=== PATIENT | female | born 1930 | race Caucasian/White ===

== ENCOUNTER → 2016-09-09 | Outpatient (CLI) | payer MEDICARE, OTHER ==
--- NOTE | 2016-09-09 17:08 | WOMENS IMAGING REPORT ---
EXAM DESCRIPTION: 3D SCREENING MAMMO BILAT COMPLETED DATE/TIME: 09/09/2016 9:10 am REASON FOR STUDY: BILAT SCREENING MAMMO (Z12.31) COMPARISON: 08/20/2015 TECHNIQUE: Standard craniocaudal and mediolateral oblique views of each breast recorded using digita l acquisition and breast tomosynthesis. LIMITATIONS: None. FINDINGS: Findings present which are benign by mammographic criteria. No suspicious masses, calcifi cations or architectural distortion. Read with the assistance of CAD. .[facility] - R2 Cenova Version 1.3 .[facility] - R2 Cenova Version 1.3 .[facility] - R2 Cenova Version 2.4 .[facility] [place]2 Cenova Version 2.4 .[facility] - R2 Network Technology Instructor Version 9.2 Benign mammographic findings may include one or more of the following: Smooth masses, popcorn/rim/co arse calcifications, asymmetries, post-procedure changes, and lesions with long-standing stability. BREAST DENSITY: b. There are scattered areas of fibroglandular density. BIRAD: 2 BENIGN FINDING(S) RECOMMENDATION: RECOMMENDATION: ROUTINE SCREENING COMMENT: PATIENT NOTIFIED BY LETTER The [employer] recommends an annual screening mammogram for women aged 40 years or over. Each patient will receive a reminder prior to the anniversary date of her mammogram. The [employer] (ACR) has developed recommendations for screening MRI of the breast s in certain patient populations, to be used in conjunction with mammography. Breast MRI surveillanc e may be appropriate for women with more than 20% lifetime risk of developing breast cancer as deter mined by genetic testing, significant family history of the disease, or history of mantle radiation f or Hodgkins Disease. ACR Practice Guidelines 2008. DBT Technology DBT is a type of tomographic mammography. With conventional mammography, overlapping breast tissue ma y make lesions difficult to detect, even with good compression. DBT uses an x-ray tube that rotates a round the breast, taking images at different angles. These images are then combined to create thin sl ices of the breast that the radiologist can view as a 3D reconstruction. [facility] unit can perform full-field digital mammograms (2D imaging); or DBT (3D imaging); or both, in a combination mode that quickly performs both the mammogram and the tomosynthesis scan while the breast is still compressed. PQRS 6045F: Fluoroscopic imaging is not utilized for breast tomosynthesis. TECHNICAL DOCUMENTATION: FINDING NUMBER: (1) ASSESSMENT: (1) JOB ID: [id number] [employer]- All Rights Reserved
== END ==
LOC: WI 08:56
PROVIDERS: ATTEND Family Medicine
DX: Z12.31 Encounter for screening mammogram for malignant neoplasm of breast (principal)
CPT/HCPCS: 77063; G0202; 77067

== ENCOUNTER → 2016-09-17 | Outpatient (CLI) | payer MEDICARE, OTHER ==
[2016-09-17 16:58] LABS: ANION GAP 9 (5-19); BLOOD UREA NITROGEN 16 mg/dL (7-20); CALCIUM 10.4 mg/dL (8.4-10.2); CARBON DIOXIDE 29 mmol/L (22-30); CHLORIDE 105 mmol/L (98-107); CREATININE RESULT 1.27 mg/dL (0.52-1.25); GLUCOSE 94 mg/dL (75-110); POTASSIUM 4.2 mmol/L (3.6-5.0); SODIUM 143.3 mmol/L (137-145)
[2016-09-20 16:38] LABS: ALBUMIN 3 3.2 g/dL (2.9-4.4); ALPHA-1-GLOBULIN 0.2 g/dL (0.0-0.4); ALPHA-2-GLOBULIN 3 0.9 g/dL (0.4-1.0); BETA GLOBULIN 0.9 g/dL (0.7-1.3); GLOBULIN TTL 2.9 g/dL (2.2-3.9); IMMUNOGLOBULIN A 159 mg/dL (64-422); IMMUNOGLOBULIN G 940 mg/dL (700-1600); IMMUNOGLOBULIN M 102 mg/dL (26-217); MONOCLONAL-SPIKE Not Observed g/dL (Not Observed); PROTEIN TOTAL SERUM 6.1 g/dL (6.0-8.5)
== END ==
LOC: OD 15:00
PROVIDERS: ATTEND Internal Medicine Nephrology
DX: N17.9 Acute kidney failure, unspecified (principal); E83.52 Hypercalcemia
CPT/HCPCS: 36415; 80048; 86320

== ENCOUNTER → 2016-09-23 | Outpatient (CLI) | payer MEDICARE, OTHER ==
--- NOTE | 2016-09-23 09:17 | ST Modified Barium Swallow ---
Recommendation - Recommendations Recommendations: 1) Continue current diet. 2) Alternate bites and sips to aid in clearing trace residuals. 3) Small bites and sips to aid in reducing flash penetration and residuals. SUMMARY: Pt presents with a mild pharyngeal dysphagia characterized by flash penetration on large swallows of thin by cup and straw. Trace to mild residuals of solids observed at level of the valleculae which were observed to clear with independent initiation of second swallow. Medical Diagnoses - Medical Diagnoses Medical Diagnosis Description & ICD-10 Code(s): gastroesophageal reflux disease Other Medical Diagnoses/Co-Morbidities: reflux, CHF, diverticulosis, depression , hiatal hernia, "hypothyroid- nodules non-toxic" - ICD-10 Tx Diagnosis Coding (1) Dysphagia, pharyngeal phase ICD-10 Code(s): R13.13 - DYSPHAGIA, PHARYNGEAL PHASE ST Modified Barium Swallow - General Date: 09/23/16 Referring Physician: Taylor Pierce MD Risks/Precautions: Falls - uses walker Date of Onset: 06/23/16 Reason for Referral: gastroesophageal reflux disease - History History obtained from: Patient, Parent/Caregiver - daugther -: Medical - Pt reports onset of symptoms approximately 7-10 years ago, however after "aspiration event" 3 months ago, daughter reports symptoms have become worse and cough has increased. Pt's daughter reports pt coughs on liquids mostly , however at times will cough on solids "when she does not chew well." PMHx: reflux, CHF, diverticulosis, depression, hiatal hernia, "hypothyroid- nodules non-toxic" Medications: nebulizer, tylenol, prevacid, aspirin, melatonin, ipratropium, ketoconazole, align, zemplar, citalopram, nadolol, nasonex, oxybutynin chloride , potassium chloride, zetia, atorvastatin, ibuprofen, furosemide, synthroid, urecholine, aricept, klonopin, linzess. Allergies: lyrica, dairy - Functional Status Prior Functional Status: INDEPENDENT: feeding Current Functional Limitations: feeding - Subjective Patient/caregiver goal(s): safe swallow, r/o aspiration Cognitive-Linguistic Function: Functional Speech Intelligibility: WNL Current Nutritional Means: PO Current PO diet: Regular Current symptoms: Coughing, c/o Globus sensation Pain: 0/5 - Objective Assessment: Upright, Left Lateral - Food Trials Used Food trials used: Thin liquids, Pureed, Regular The patient: Was Able to Self Feed - Oral-Motor Skills Dentition: Partial - lower teeth only Velo-pharyngeal function: Unremarkable Laryngeal Function: Volitional Cough, Volitional Swallow - Assessment Oral prep: Adeq, for consist. tested Labial closure: Adequate Leakage: None Mastication: Adequate Lingual Movement: Normal Oral stage: Normal for this Procedure - Pharyngeal Stage Initiation of Pharyngeal Stage Reflex: Normal Decreased laryngeal elevation: No Reduced Velopharyngeal Closure: no Reduced pressure generation: Yes - mild reduced tongue-based retraction: No Pre-swallow pooling in valleculae: None Pre-Swallow pooling in pyriforms: None Reduced Thyro-Hyoid approximation: Yes - mild Reduced epiglottic excursion: No Reduced pharyngeal peristalsis/contraction: No Post-swallow residulas vallecular: Mild - trace-mild Post-Swallow residuals in pyriforms: Mild - trace-mild Reduced Cricopharyngeal opening: No - Fall Risk Assessment Medications/Conditions that increase fall risks include: Antidepressants, sedatives, anti-arrhythmic, diuretic, benzodiazipenes, neuroleptics. BP regulation problems, cardiac problems, balance or gait deficits, neurological problems. Is patient considered at risk for falls: yes Fall Risk Actions Taken: Pt physician notified - Behavioral Observations During evaluation process patient: was pleasant, was cooperative, able to answer questions, provided medical history - Treatment / Educational Needs: Treatment/Education Needs: Treatment consisted of patient education on the role of the Speech Pathologist. Patient's plan of care and golas were communicated as well as scheduling and attendance policies. Recommendations for initial home program were shared. Patient demonstrated understanding and verbalized agreement. - Impression/Summary Laryngeal Penetration: Yes, Flash, during swallow Consistency: Thin Tracheal Aspiration: no Patient presents with: Pharyngeal stage dysph. Risk of Aspiration: Mild - minimal-mild - Recommendations NPO: no Solid diet recommendations: Mechanical Soft Liquid Diet Modification: Thin Pt/Family education and followup with MD: Yes Dysphagia therapy with LUMBER INSPECTOR: no Recommended techniques: Fully Upright During Meal, Small Bites and Sips, Alternate Bites/Sips Supervision: Distant Information, Precautions and Recommendations: Patient (Verbal), Family Member ( Verbal) - Time Total Time: 25 - Plan of Care Strategies to optimize patient understanding include:: ongoing assessment of educational needs, implementation of educational strategies, and re-education. - - -: Thank you for the opportunity to work with this patient and his/her family. Should you have any questions about this patient's plan or progress, I can be reached at [phone]. Charge G Code? - - -: Yes ST White Impairment Category - Rationale Based On Rationale Based On: Clin Find., Obj Measures - Swallowing Current G8996: CI 1-19% Impaired Goal G8997: CI 1-19% Impaired Discharge G8998: CI 1-19% Impaired
== END ==
LOC: RAD 08:10
PROVIDERS: ATTEND Family Medicine
DX: R13.12 Dysphagia, oropharyngeal phase (principal)
CPT/HCPCS: 74220; 74230; 92611; G8996; G8997; G8998

== ENCOUNTER → 2016-10-26 | Outpatient (CLI) | payer MEDICARE, OTHER ==
--- NOTE | 2016-10-27 19:17 | XCELERA REPORT ---
[address] [address] Transthoracic Echocardiogram Report Name: DORY HER Age: 86 yrs Gender: Female : 1930 Patient Status: Outpatient Patient Location: Study Date: 10/26/2016 02:14 PM Height: 59 in Weight: 132 lb BSA: 1.5 m2 Procedure: A two-dimensional transthoracic echocardiogram with color flow and Doppler was performed. Study Quality: Poor. Reason For Study: MR CAD History: MR CAD. Ordering Physician: GRACIE SALDANA Performed By: Soraya Michael Interpretation Summary The left ventricle is normal in size. There is normal left ventricular wall thickness. LV EF is > than 60% Left ventricular systolic function is normal. Doppler measurements suggest impaired left ventricular relaxation, which is associated with grade I/IV or mild diastolic dysfunction The left ventricular wall motion is normal. No obvious thrrombus.No VSD The right ventricle is grossly normal size. The left atrial size is normal. The interatrial septum is intact with no evidence for an atrial septal defect. There is mild mitral leaflet calcification. There is no evidence of mitral valve prolapse. There is no vegetation seen on the mitral valve. There is no mitral valve stenosis. There is a mild amount of mitral regurgitation The aortic valve opens well. There is no aortic valvular vegetation. There is no aortic valve stenosis There is no LVOT obstruction. There is a trace amount of aortic regurgitation There is no tricuspid stenosis. There is a trace to mild amount of tricuspid regurgitation There is mild pulmonary hypertension by echo RVSP is 37 mm of Hg , with RA mean of 5. The aortic root is normal size. There is no pericardial effusion. MMode/2D Measurements \T\ Calculations RVDd: 2.2 cm LVIDd: 3.0 cm FS: 36.2 % Ao root diam: 2.7 cm IVSd: 1.1 cm LVIDs: 1.9 cm EDV(Teich): 36.1 ml LVPWd: 0.97 cm ESV(Teich): 11.8 ml Ao root area: 5.6 cm2 EF(Teich): 67.4 % LA dimension: 2.9 cm Doppler Measurements \T\ Calculations MV E max yaneli: MV P1/2t max yaneli: Ao V2 max: LV V1 max P.5 cm/sec 76.0 cm/sec 112.9 cm/sec 3.5 mmHg MV A max yaneli: MV P1/2t: 65.6 msec Ao max PG: LV V1 max: 80.0 cm/sec 5.1 mmHg 93.3 cm/sec MV E/A: 0.93 MVA(P1/2t): 3.4 cm2 MV dec slope: 339.1 cm/sec2 MV dec time: 0.22 sec PA V2 max: PI end-d yaneli: TR max yaneli: 76.0 cm/sec 118.4 cm/sec 283.7 cm/sec PA max PG: TR max P.3 mmHg 32.2 mmHg Left Ventricle The left ventricle is normal in size. There is normal left ventricular wall thickness. LV EF is > than 60%. Left ventricular systolic function is normal. Doppler measurements suggest impaired left ventricular relaxation, which is associated with grade I/IV or mild diastolic dysfunction. The left ventricular wall motion is normal. No obvious thrrombus.No VSD. Right Ventricle The right ventricle is grossly normal size. The right ventricle is not well visualized secondary to technical limitations. Atria The right atrium is normal. The left atrial size is normal. The interatrial septum is intact with no evidence for an atrial septal defect. Mitral Valve There is mild mitral leaflet calcification. There is no evidence of mitral valve prolapse. There is no vegetation seen on the mitral valve. There is no mitral valve stenosis. There is a mild amount of mitral regurgitation. Aortic Valve The aortic valve opens well. The aortic valve is trileaflet. There is no aortic valvular vegetation. There is no aortic valve stenosis. There is no LVOT obstruction. There is a trace amount of aortic regurgitation. Tricuspid Valve There is no tricuspid stenosis. There is a trace to mild amount of tricuspid regurgitation. There is mild pulmonary hypertension by echo. RVSP is 37 mm of Hg , with RA mean of 5. Pulmonic Valve There is no pulmonic valvular stenosis. There is a trace amount of pulmonic regurgitation. Great Vessels The aortic root is normal size. Effusions There is no pericardial effusion. : GRACIE SALDANA > Gracie Saldana
== END ==
LOC: SP 13:40
PROVIDERS: ATTEND Specialist
DX: Z01.810 Encounter for preprocedural cardiovascular examination (principal); I34.0 Nonrheumatic mitral (valve) insufficiency; I25.10 Atherosclerotic heart disease of native coronary artery without angina pectoris
CPT/HCPCS: 93306

== ENCOUNTER → 2016-10-27 | Outpatient (CLI) | payer MEDICARE, OTHER ==
[~2016-10-27] MED LIST: REGADENOSON INJ 0.4 MG/5 ML DISP.SYRIN IV ONE
--- NOTE | 2016-10-28 22:31 | DRAGON STRESS TEST REPORT ---
Intravenous Lexiscan Cardiolite stress test using single photon emmision computerized tomography. Date of procedure: 10/27/2016. Ordering Provider: Dr. Gracie Villa. Attending Physician: Dr. Oneyda Pierce. Indication: Congestive Heart Failure, and preoperative cardiac risk assessment.. Coronary risk factors: Age, hypertension, and dyslipidemia. Resting EKG: Sinus Rhythm Within Normal Limits. The patient no chest pain or discomfort, and there were no arrhythmias seen. Stress EKG: No changes of ischemia. Reason for termination: Protocol. Conclusions: Normal EKG and hemodynamic response to IV Lexiscan. Nuclear data: At rest the patient was given 10.65 millicuries of technetium 99m sestamibi injected intravenously. As per protocol rest non gated SPECT images were obtained. Subsequently the patient was given intravenous Lexiscan at a dose of 0.4 mg in 5 mL intravenously, followed by flush with normal saline. Subsequently the stress dose of 32.5 millicuries of technetium 99m sestamibi was injected intravenously. As per protocol stress gated images were obtained. Nuclear interpretation: Review of images showed that there was bowel contamination artifact and also motion artifact. In spite of this all segments of the myocardium had normal perfusion at rest, and normal perfusion post stress with IV Lexiscan. All segments of the myocardium had normal motion, contraction, and thickening by gated study. T. I D. ratio was normal at 0.98. Computer read rest, and stress left ventricular ejection fraction were 70 %, and 61 %, respectively. Conclusion: 1. There is no scintigraphic evidence of Lexiscan induced myocardial ischemia. 2. There is no scintigraphic evidence of myocardial infarction/scar. Recommendations: Aggressive risk factor modification, and treating the underlying co- morbidities. MTDD
== END ==
LOC: RAD 07:15
PROVIDERS: ATTEND Specialist
DX: Z01.810 Encounter for preprocedural cardiovascular examination (principal); I50.32 Chronic diastolic (congestive) heart failure; I25.118 Atherosclerotic heart disease of native coronary artery with other forms of angina pectoris; I10 Essential (primary) hypertension; E78.5 Hyperlipidemia, unspecified
CPT/HCPCS: 93017; 78452; A9500; J2785; Q9969

== ENCOUNTER 2016-11-18 13:51 | Inpatient (IN) | payer MEDICARE, OTHER ==
[2016-11-15 12:34] LABS: ANION GAP 12 (5-19); BLOOD UREA NITROGEN 24 mg/dL (7-20); CALCIUM 10.8 mg/dL (8.4-10.2); CARBON DIOXIDE 28 mmol/L (22-30); CHLORIDE 104 mmol/L (98-107); CREATININE RESULT 1.23 mg/dL (0.52-1.25); GLUCOSE 99 mg/dL (75-110); POTASSIUM 4.9 mmol/L (3.6-5.0); SODIUM 143.7 mmol/L (137-145)
[2016-11-15 12:57] LABS: HEMATOCRIT 41.9 % (36.0-47.0); HGB HCT DIFFERENCE 0.1; MEAN CORPUSCULAR HEMOGLOBIN 29.7 pg (27.0-33.4); MEAN CORPUSCULAR HGB CONC 33.3 g/dL (32.0-36.0); MEAN CORPUSCULAR VOLUME 89 fl (80-97); RED BLOOD COUNT 4.71 10^6/uL (3.72-5.28); RED CELL DISTRIBUTION WIDTH 14.3 % (11.5-14.0); WHITE BLOOD COUNT 7.1 10^3/uL (4.0-10.5)
--- NOTE | 2016-11-15 13:46 | EKG REPORT ---
SEVERITY:- NORMAL ECG - SINUS RHYTHM : Confirmed by: Kam Balderas MD 15-Nov-2016 13:45:35
[~2016-11-18 13:51] MED LIST changes: +GLYCOPYRROLATE INJ 0.4 MG/2 ML VIAL ONE; +LIDOCAINE 0.5% INJ-PF (5 MG/ML) 50 ML SDV SUBCUT PRN; +NEOSTIGMINE METHYLSULFATE 10 MG/10 ML VIAL ONE; -REGADENOSON INJ 0.4 MG/5 ML DISP.SYRIN IV ONE; +RINGERS SOLUTION,LACTATED 1,000 ML IV PRN; +ROCURONIUM BROMIDE INJ 50 MG/5 ML VIAL IV ONE; +SUCCINYLCHOLINE CHLORIDE INJ 200 MG/10 ML VIAL ONE
[2016-11-18] MEDS ORDERED: FENTANYL CITRATE INJ/PF 100 MCG/2 ML AMPUL ONE (14:52)
[2016-11-18] MEDS ORDERED: MIDAZOLAM 2 MG/2 ML INJ ONE (14:52)
[2016-11-18] MEDS ORDERED: PROPOFOL INJ 200 MG/20 ML VIAL IV ONE (14:53)
[2016-11-18] MEDS ORDERED: DEXAMETHASONE SOD PHOSPHATE INJ 4 MG/1 ML VIAL ONE (14:53)
[2016-11-18] MEDS ORDERED: MORPHINE SULFATE 10 MG/ML INJ ONE (14:53)
[2016-11-18] MEDS ORDERED: ONDANSETRON HCL INJ/PF 4 MG/2 ML SDV ONE (14:53)
[2016-11-18] MEDS ORDERED: CEFAZOLIN INJ 1 GM VIAL ONE (16:45)
[2016-11-18] MEDS ORDERED: DIPHENHYDRAMINE HCL 50 MG/ML VIAL IV PRN (18:22)
[2016-11-18] MEDS ORDERED: ONDANSETRON HCL INJ/PF 4 MG/2 ML SDV IV PRN ×2 (18:22→19:00)
[2016-11-18] MEDS ORDERED: MEPERIDINE HCL/PF INJ 25 MG/1 ML DISP.SYRIN IV PRN (18:22)
[2016-11-18] MEDS ORDERED: FENTANYL CITRATE INJ/PF 100 MCG/2 ML AMPUL IV PRN ×3 (18:22)
[2016-11-18] MEDS ORDERED: KETOROLAC TROMETHAMINE INJ/PF 30 MG/1 ML SDV ONE (18:59)
[2016-11-18] MEDS ORDERED: PHENAZOPYRIDINE HCL 100 MG TABLET PO PRN (19:00)
[2016-11-18] MEDS ORDERED: KETOROLAC TROMETHAMINE INJ/PF 30 MG/1 ML SDV IV PRN (19:00)
[2016-11-18] MEDS ORDERED: ACETAMINOPHEN 325 MG TABLET ONE (21:47)
[2016-11-19] MEDS: ACETAMINOPHEN 325 MG TABLET PO PRN ×3 (02:08→19:41)
[2016-11-19] MEDS ORDERED: NORMAL SALINE 500 ML IV ONE (02:15)
[2016-11-19] MEDS ORDERED: NORMAL SALINE 250 ML IV ONE ×2 (04:15)
[2016-11-19] MEDS ORDERED: NORMAL SALINE 1000 ML 1,000 ML IV ONE (08:00)
[2016-11-19] MEDS ORDERED: ERTAPENEM SODIUM INJ 1 GM VIAL IV SCH (08:00)
[2016-11-19 08:36] LABS: HEMOGLOBIN 10.5 g/dL (12.0-15.5); HGB HCT DIFFERENCE -0.5; MEAN CORPUSCULAR HEMOGLOBIN 29.2 pg (27.0-33.4); MEAN CORPUSCULAR HGB CONC 32.9 g/dL (32.0-36.0); MEAN CORPUSCULAR VOLUME 89 fl (80-97); RED BLOOD COUNT 3.61 10^6/uL (3.72-5.28); RED CELL DISTRIBUTION WIDTH 14.7 % (11.5-14.0); WHITE BLOOD COUNT 12.9 10^3/uL (4.0-10.5)
[2016-11-19 08:46] LABS: ALANINE AMINOTRANSFERASE 23 U/L (9-52); ALBUMIN 2.5 g/dL (3.5-5.0); ALKALINE PHOSPHATASE 68 U/L (38-126); ANION GAP 11 (5-19); ASPARTATE AMINO TRANSFERASE 22 U/L (14-36); BILIRUBIN,DIRECT 0.2 mg/dL (0.0-0.4); BILIRUBIN,TOTAL 0.5 mg/dL (0.2-1.3); BLOOD UREA NITROGEN 20 mg/dL (7-20); CALCIUM 8.8 mg/dL (8.4-10.2); CARBON DIOXIDE 23 mmol/L (22-30); CHLORIDE 107 mmol/L (98-107); CREATINE KINASE 26 U/L (30-135); CREATININE RESULT 1.51 mg/dL (0.52-1.25); GLUCOSE 85 mg/dL (75-110); MAGNESIUM 1.4 mg/dL (1.6-2.3); POTASSIUM 3.7 mmol/L (3.6-5.0); SODIUM 140.6 mmol/L (137-145); TOTAL PROTEIN 4.8 g/dL (6.3-8.2)
[2016-11-19 08:55] LABS: CREATINE KINASE MB 0.27 ng/mL (<4.55); TROPONIN I 0.013 ng/mL
[2016-11-19 09:25] LABS: BAND NEUTROPHILS % (MANUAL) 28 % (3-5); BASOPHILS % (MANUAL) 0 % (0-2); EOSINOPHILS % (MANUAL) 0 % (0-6); LYMPHOCYTES % (MANUAL) 2 % (13-45); POLYCHROMASIA SLIGHT; TOTAL CELLS COUNTED 100; TOXIC GRANULATION SLIGHT; TOXIC VACUOLATION PRESENT
[2016-11-19] MEDS: LACTOBACILLUS ACIDOPHILUS 250 MG TAB PO SCH ×2 (09:53→17:58)
[2016-11-19] MEDS ORDERED: MAGNESIUM SULFATE/D5W 1 GM/100 ML RTUPB IV ONE (10:00)
[2016-11-19] MEDS ORDERED: LEVOTHYROXINE SODIUM 0.05 MG TABLET PO ONE (10:30)
--- NOTE | 2016-11-19 10:51 | PDOC CONSULTATION ---
Consultation Consult Date: 11/19/16 Attending physician:: Dr. Vera Consult reason:: Hypotension History of Present Illness Admission Date/PCP: DEANDRE SYKES MD Patient complains of: Back pain History of Present Illness: DORY HER is a 86 year old female, with ureterolithiasis but no reported stent placement, admitted electively for lithotripsy yesterday and stayed overnight after the procedure, where she received morphine, fentanyl, Diprivan, and Versed. Earlier this morning she reportedly developed hypotension and the hospitalist was called for consultation. Reportedly there is fever. The patient denies any headache or dizziness, but feels generally weak. She denies any diarrhea, dysuria urgency or frequency. No hematuria as well. There is no cough or shortness of breath or chest pain. Patient was given normal saline boluses by the on-call physician, routine laboratory examinations were performed. Past Medical History Cardiac Medical History: Reports: Congestive Heart Failure, Coronary Artery Disease, Hyperlipidema, Hypertension, Heart Murmur - Tricuspid regurgitation Denies: Atrial Fibrillation, Myocardial Infarction, Peripheral Vascular Disease, Pulmonary Embolism Pulmonary Medical History: Reports: Bronchitis - 2012 Denies: Asthma, Chronic Obstructive Pulmonary Disease (COPD), Pneumonia, Respiratory Failure, Sleep Apnea, Tuberculosis Neurological Medical History: Denies: Seizures Endocrine Medical History: Reports: Hypothyroidism Denies: Hyperthyroidism Renal/ Medical History: Denies: End Stage Renal Disease Malignancy Medical History: Denies: Breast Cancer, Cervical Cancer, Leukemia, Lung Cancer, Ovarian Cancer GI Medical History: Reports: Gastroesophageal Reflux Disease, Hiatal Hernia Denies: Crohn's Disease Musculoskeltal Medical History: Reports: Arthritis Denies: Fibromyalgia Psychiatric Medical History: Reports: Dementia - Dx'ed 6 years ago, "mini bleeds ", Depression Denies: Bipolar Disorder, Post Traumatic Stress Disorder Hematology: Denies: Anemia, Hemophilia, Sickle Cell Disease Infectious Medical History: Denies: HIV Past Surgical History Past Surgical History: Reports: Appendectomy, Hysterectomy, Orthopedic Surgery - left hip replacement, Tonsillectomy Denies: Amputation, Section, Cholecystectomy, Colostomy, Coronary Artery Bypass Graft, Gastric Bypass Surgery, Herniorrhaphy, Mastectomy, Pacemaker, Tubal Ligation Social History Information Source: Patient Smoking Status: Never Smoker Frequency of Alcohol Use: None Hx Recreational Drug Use: No Drugs: None Hx Prescription Drug Abuse: No Family History Family History: Hypertension Parental Family History Reviewed: Yes Children Family History Reviewed: Yes Sibling(s) Family History Reviewed.: Yes Medication/Allergy Home Medications: Levothyroxine Sodium [Synthroid 0.075 mg Tablet] 50 mcg PO QAM 09/22/11 Paricalcitol [Zemplar 1 Mcg Capsule] 1 mcg PO QAM 09/22/11 Clonazepam [Klonopin 1 mg Tablet] 0.5 mg PO QHS #0 09/15/13 Acetaminophen [Tylenol Extra Strength 500 mg Tablet] 2 tab PO Q8 PRN 06/11/14 Aspirin [Aspirin 81 mg Chewable Tablet] 81 mg PO DAILY 11/04/14 Ezetimibe [Zetia 10 mg Tablet] 10 mg PO QHS 11/04/14 Oxybutynin Chloride [Ditropan Xl] 10 mg PO DAILY 11/04/14 Potassium Chloride 10 meq PO DAILY 11/04/14 Bethanechol Chloride [Urecholine 10 mg Tablet] 10 mg PO TID 02/23/16 Citalopram Hydrobromide [Celexa 20 mg Tablet] 20 mg PO QHS 02/23/16 Nadolol 20 mg PO DAILY 02/23/16 Bifidobacterium Infantis [Align 4 mg Capsule] 1 cap PO BID #28 02/28/16 Furosemide [Lasix 40 mg Tablet] 40 mg PO DAILY #0 02/28/16 Donepezil HCl [Aricept 5 mg Tablet] 1 tab PO DAILY 11/18/16 Linaclotide [Linzess 145 Mcg Capsule] 1 tab PO DAILY 11/18/16 Allergies/Adverse Reactions: pregabalin [From Lyrica] Adverse Reaction (Intermediate, Verified 12/12/13 17:19 ) jerking LACTOSE INTOLERANT Allergy (Uncoded 11/11/16 15:15) NARCOTICS Allergy (Uncoded 11/11/16 15:16) PSYCHOLOGICAL EFFECTS, GETS VERY ANGRY Review of Systems Constitutional: PRESENT: chills, fever(s), weakness - Generalized, weight loss - Unquantified for the last 6 months. ABSENT: headache(s), night sweats, weight gain Eyes: ABSENT: visual disturbances Ears: ABSENT: hearing changes Nose, Mouth, and Throat: ABSENT: mouth pain, sore throat Cardiovascular: PRESENT: dyspnea on exertion - Chronic, patient with limited mobility. ABSENT: chest pain, edema, orthropnea, palpitations Respiratory: ABSENT: cough, dyspnea - At rest, hemoptysis Gastrointestinal: ABSENT: abdominal pain, constipation, diarrhea, hematemesis, hematochezia, nausea, vomiting Genitourinary: ABSENT: difficulty urinating, dysuria, hematuria Musculoskeletal: ABSENT: joint swelling Integumentary: ABSENT: pruritus, rash, wounds Neurological: ABSENT: abnormal gait, abnormal speech, confusion, dizziness, focal weakness, syncope Psychiatric: ABSENT: anxiety, depression, homidical ideation, suicidal ideation Endocrine: ABSENT: cold intolerance, heat intolerance, polydipsia, polyuria Hematologic/Lymphatic: ABSENT: easy bleeding, easy bruising Physical Exam Vital Signs: Temp Pulse Resp BP Pulse Ox 97.3 F 65 20 80/34 L 98 11/19/16 09:50 11/19/16 09:50 11/19/16 09:50 11/19/16 09:50 11/19/16 09:50 Intake & Output 11/18/16 11/19/16 11/20/16 06:59 06:59 06:59 Intake Total 950 Balance 950 Weight 65.4 kg General appearance: PRESENT: no acute distress, cooperative Head exam: PRESENT: atraumatic, normocephalic Eye exam: PRESENT: conjunctiva pale, EOMI, PERRLA. ABSENT: scleral icterus Ear exam: PRESENT: normal external ear exam. ABSENT: drainage Mouth exam: PRESENT: moist, neck supple, tongue midline Neck exam: ABSENT: carotid bruit, JVD, lymphadenopathy, thyromegaly Respiratory exam: PRESENT: clear to auscultation byron. ABSENT: rales, rhonchi, wheezes Cardiovascular exam: PRESENT: RRR. ABSENT: diastolic murmur, rubs, systolic murmur Pulses: PRESENT: normal dorsalis pedis pul Vascular exam: PRESENT: normal capillary refill GI/Abdominal exam: PRESENT: normal bowel sounds, soft, tenderness - Mild on the left flank. ABSENT: distended, guarding, mass, organolmegaly, rebound Rectal exam: PRESENT: deferred Extremities exam: PRESENT: full ROM, other - Trace lower extremity edema bilateral. ABSENT: calf tenderness, clubbing Neurological exam: PRESENT: alert, awake, oriented to situation Psychiatric exam: PRESENT: appropriate affect, normal mood. ABSENT: homicidal ideation, suicidal ideation Skin exam: PRESENT: dry, intact, warm. ABSENT: cyanosis, rash Results Laboratory Results: 11/19/16 07:56 11/19/16 07:56 11/18/16 11/18/16 11/19/16 14:29 15:50 07:56 WBC 12.9 H RBC 3.61 L Hgb 10.5 L Hct 32.0 L MCV 89 MCH 29.2 MCHC 32.9 RDW 14.7 H Plt Count 106 L Seg Neutrophils % Not Reportable Lymphocytes % Not Reportable Monocytes % Not Reportable Eosinophils % Not Reportable Basophils % Not Reportable Absolute Neutrophils Not Reportable Absolute Lymphocytes Not Reportable Absolute Monocytes Not Reportable Absolute Eosinophils Not Reportable Absolute Basophils Not Reportable Sodium Potassium Cancelled 4.0 Chloride Carbon Dioxide Anion Gap BUN Creatinine Est GFR ( Amer) Est GFR (Non-Af Amer) Glucose Calcium Magnesium Total Bilirubin AST ALT Alkaline Phosphatase Total Protein Albumin TSH Free T4 11/19/16 11/19/16 11/19/16 07:56 07:56 07:56 WBC RBC Hgb Hct MCV MCH MCHC RDW Plt Count Seg Neutrophils % Lymphocytes % Monocytes % Eosinophils % Basophils % Absolute Neutrophils Absolute Lymphocytes Absolute Monocytes Absolute Eosinophils Absolute Basophils Sodium 140.6 Potassium 3.7 Chloride 107 Carbon Dioxide 23 Anion Gap 11 BUN 20 Creatinine 1.51 H Est GFR ( Amer) 40 L Est GFR (Non-Af Amer) 33 L Glucose 85 Calcium 8.8 Magnesium 1.4 L Total Bilirubin 0.5 AST 22 ALT 23 Alkaline Phosphatase 68 Total Protein 4.8 L Albumin 2.5 L TSH 0.55 Free T4 1.23 11/19/16 11/19/16 07:56 07:56 Creatine Kinase 26 L CK-MB (CK-2) 0.27 Troponin I 0.013 Assessment & Plan - Diagnosis (1) Hypotension Qualifiers: Hypotension type: hypotension due to drug Qualified Code(s): I95.2 - Hypotension due to drugs Is this a current diagnosis for this admission?: Yes (2) Fever Qualifiers: Fever type: unspecified Qualified Code(s): R50.9 - Fever, unspecified Is this a current diagnosis for this admission?: Yes (3) Ureteral calculus Is this a current diagnosis for this admission?: Yes (4) Hypothyroidism Qualifiers: Hypothyroidism type: unspecified Qualified Code(s): E03.9 - Hypothyroidism, unspecified Is this a current diagnosis for this admission?: Yes (5) Hiatal hernia Is this a current diagnosis for this admission?: Yes (6) Tricuspid regurgitation Qualifiers: Cardiac valve disease etiology: etiology unspecified Qualified Code( s): I07.1 - Rheumatic tricuspid insufficiency Is this a current diagnosis for this admission?: Yes (7) Hypertension Qualifiers: Hypertension type: essential hypertension Qualified Code(s): I10 - Essential (primary) hypertension Is this a current diagnosis for this admission?: Yes (8) Congestive heart failure (CHF) Qualifiers: Congestive heart failure type: unspecified congestive heart failure type Congestive heart failure chronicity: chronic Qualified Code(s): I50.9 - Heart failure, unspecified Is this a current diagnosis for this admission?: Yes - Time Time Spent: 50 to 70 Minutes - Plan Summary Plan Summary: Continue intravenous hydration, transferred to the stepdown unit for closer monitoring, send urine and blood cultures, begin intravenous antibiotic with Invanz, check thyroid panel. Thank you so much for this consultation. We will follow the patient with you.
[2016-11-19 12:18] LABS: THYROID STIMULATING HORMONE 0.68 uIU/mL (0.47-4.68)
[2016-11-19] MEDS: ERTAPENEM SODIUM 0.5 GM in NORMAL SALINE 50 ML IV SCH (13:09)
--- NOTE | 2016-11-19 18:29 | EKG REPORT ---
SEVERITY:- BORDERLINE ECG - SINUS RHYTHM NONSPECIFIC ST-T CHANGES- INFERIOR LEADS : Confirmed by: Kam Balderas MD 19-Nov-2016 18:27:53
[2016-11-19] MEDS: NORMAL SALINE 1000 ML 1,000 ML IV PRN (20:50)
[2016-11-20] MEDS: ACETAMINOPHEN 325 MG TABLET PO PRN ×2 (00:20→22:53)
[2016-11-20] MEDS: NORMAL SALINE 1000 ML 1,000 ML IV PRN ×3 (03:44→20:00)
[2016-11-20 05:39] LABS: ANION GAP 7 (5-19); BLOOD UREA NITROGEN 25 mg/dL (7-20); CALCIUM 8.6 mg/dL (8.4-10.2); CARBON DIOXIDE 22 mmol/L (22-30); CHLORIDE 111 mmol/L (98-107); GLUCOSE 144 mg/dL (75-110); MAGNESIUM 1.9 mg/dL (1.6-2.3); POTASSIUM 3.8 mmol/L (3.6-5.0); SODIUM 139.7 mmol/L (137-145)
[2016-11-20] MEDS ORDERED: LEVOTHYROXINE SODIUM 0.075 MG TABLET PO SCH (08:00)
[2016-11-20] MEDS: LEVOTHYROXINE SODIUM 0.05 MG TABLET PO SCH (09:10)
[2016-11-20] MEDS: TRAMADOL HCL 50 MG TABLET PO PRN ×2 (09:10→15:16)
[2016-11-20] MEDS: LACTOBACILLUS ACIDOPHILUS 250 MG TAB PO SCH ×2 (09:10→18:17)
[2016-11-20] MEDS: ERTAPENEM SODIUM 0.5 GM in NORMAL SALINE 50 ML IV SCH (12:16)
[2016-11-20] MEDS ORDERED: MELOXICAM 7.5 MG TABLET PO ONE (17:30)
--- NOTE | 2016-11-20 18:03 | PDOC PROGRESS REPORT ---
Subjective Progress Note for:: 11/20/16 Subjective:: Patient is feeling better although he still has some lightheadedness. No nausea or vomiting. Complains of intermittent aches and pains at times some headache. Denies any chest pain nor shortness of breath. Physical Exam Vital Signs: Temp Pulse Resp BP Pulse Ox 98.8 F 64 16 108/51 L 97 11/20/16 14:55 11/20/16 14:55 11/20/16 14:55 11/20/16 14:55 11/20/16 14:55 Intake & Output 11/19/16 11/20/16 11/21/16 06:59 06:59 06:59 Intake Total 950 2842 Output Total 650 Balance 950 2192 Weight 65.4 kg 65.4 kg General appearance: PRESENT: no acute distress, cooperative Head exam: PRESENT: normocephalic Eye exam: PRESENT: EOMI Mouth exam: PRESENT: moist, neck supple Neck exam: ABSENT: JVD Respiratory exam: PRESENT: clear to auscultation byron. ABSENT: rhonchi, wheezes Cardiovascular exam: PRESENT: RRR. ABSENT: gallop GI/Abdominal exam: PRESENT: soft. ABSENT: distended, tenderness Extremities exam: ABSENT: pedal edema Neurological exam: PRESENT: alert, awake Skin exam: PRESENT: dry, warm. ABSENT: cyanosis Results Laboratory Results: 11/19/16 07:56 11/20/16 04:48 11/20/16 04:48 Sodium 139.7 Potassium 3.8 Chloride 111 H Carbon Dioxide 22 Anion Gap 7 BUN 25 H Creatinine 1.70 H Est GFR ( Amer) 34 L Est GFR (Non-Af Amer) 28 L Glucose 144 H Calcium 8.6 Magnesium 1.9 11/19/16 11/19/16 07:56 07:56 Creatine Kinase 26 L CK-MB (CK-2) 0.27 Troponin I 0.013 Assessment & Plan - Diagnosis (1) Hypotension Qualifiers: Hypotension type: hypotension due to drug Qualified Code(s): I95.2 - Hypotension due to drugs Is this a current diagnosis for this admission?: Yes (2) Fever Qualifiers: Fever type: unspecified Qualified Code(s): R50.9 - Fever, unspecified Is this a current diagnosis for this admission?: Yes (3) Ureteral calculus Is this a current diagnosis for this admission?: Yes (4) Hypothyroidism Qualifiers: Hypothyroidism type: unspecified Qualified Code(s): E03.9 - Hypothyroidism, unspecified Is this a current diagnosis for this admission?: Yes (5) Hiatal hernia Is this a current diagnosis for this admission?: Yes (6) Tricuspid regurgitation Qualifiers: Cardiac valve disease etiology: etiology unspecified Qualified Code( s): I07.1 - Rheumatic tricuspid insufficiency Is this a current diagnosis for this admission?: Yes (7) Hypertension Qualifiers: Hypertension type: essential hypertension Qualified Code(s): I10 - Essential (primary) hypertension Is this a current diagnosis for this admission?: Yes (8) Congestive heart failure (CHF) Qualifiers: Congestive heart failure type: unspecified congestive heart failure type Congestive heart failure chronicity: chronic Qualified Code(s): I50.9 - Heart failure, unspecified Is this a current diagnosis for this admission?: Yes - Time Time Spent with patient: 25-34 minutes - Plan Summary Plan Summary: Patient clinically improved. Continue current antibiotics and follow cultures, continue IV fluids and recheck WBC and creatinine in the morning. Begin PT.
[2016-11-20] MEDS ORDERED: MELOXICAM 7.5 MG TABLET ONE (18:14)
[2016-11-20] MEDS ORDERED: LACTULOSE SYRUP 20 GM/30 ML UDCUP PO PRN (20:56)
[2016-11-20] MEDS ORDERED: EZETIMIBE 10 MG TABLET PO SCH (22:00)
[2016-11-20] MEDS ORDERED: CLONAZEPAM 1 MG TABLET PO SCH (22:00)
[2016-11-20] MEDS ORDERED: CITALOPRAM HYDROBROMIDE 20 MG TABLET PO SCH (22:00)
[2016-11-20] MEDS: OXYBUTYNIN CHLORIDE 5 MG TABLET PO SCH (22:34)
[2016-11-21 04:01] LABS: HEMATOCRIT 33.2 % (36.0-47.0); HEMOGLOBIN 10.9 g/dL (12.0-15.5); HGB HCT DIFFERENCE -0.5; MEAN CORPUSCULAR HEMOGLOBIN 29.4 pg (27.0-33.4); MEAN CORPUSCULAR HGB CONC 32.9 g/dL (32.0-36.0); MEAN CORPUSCULAR VOLUME 89 fl (80-97); RED BLOOD COUNT 3.72 10^6/uL (3.72-5.28); RED CELL DISTRIBUTION WIDTH 15.1 % (11.5-14.0); WHITE BLOOD COUNT 9.5 10^3/uL (4.0-10.5)
[2016-11-21 04:42] LABS: ANION GAP 7 (5-19); BLOOD UREA NITROGEN 19 mg/dL (7-20); CALCIUM 8.7 mg/dL (8.4-10.2); CARBON DIOXIDE 20 mmol/L (22-30); CHLORIDE 116 mmol/L (98-107); CREATININE RESULT 1.42 mg/dL (0.52-1.25); GLUCOSE 94 mg/dL (75-110); POTASSIUM 4.4 mmol/L (3.6-5.0); SODIUM 142.7 mmol/L (137-145)
[2016-11-21] MEDS: LEVOTHYROXINE SODIUM 0.05 MG TABLET PO SCH (07:49)
[2016-11-21] MEDS ORDERED: PARICALCITOL 1 MCG CAPSULE PO SCH (08:00)
[2016-11-21] MEDS ORDERED: LANSOPRAZOLE 30 MG TAB.RAP.DR PO SCH (08:00)
[2016-11-21] MEDS ORDERED: ASPIRIN 81 MG TABLET, CHEWABLE PO SCH (10:00)
[2016-11-21] MEDS ORDERED: DONEPEZIL HCL 5 MG TABLET PO SCH ×2 (10:00)
[2016-11-21] MEDS ORDERED: LINACLOTIDE PO SCH (10:00)
[2016-11-21] MEDS: OXYBUTYNIN CHLORIDE 5 MG TABLET PO SCH ×2 (10:20→21:05)
[2016-11-21] MEDS: LACTOBACILLUS ACIDOPHILUS 250 MG TAB PO SCH ×2 (10:21→17:59)
--- NOTE | 2016-11-21 11:32 | PDOC PROGRESS REPORT ---
Subjective Progress Note for:: 11/21/16 Subjective:: Episode of shortness of breath last night and yesterday afternoon. Chest x-ray questionable multilobar pneumonia. No reported temperature spikes, worsening respirations, diarrhea, nausea or vomiting. High catheter still with some sanguinous drainage according to the family but getting better. Physical Exam Vital Signs: Temp Pulse Resp BP Pulse Ox 97.6 F 64 16 115/55 L 99 11/21/16 07:44 11/21/16 07:44 11/21/16 07:44 11/21/16 07:44 11/21/16 07:44 Intake & Output 11/20/16 11/21/16 11/22/16 06:59 06:59 06:59 Intake Total 2842 3119 Output Total 650 950 Balance 2192 2169 Weight 65.4 kg General appearance: PRESENT: no acute distress, cooperative, other - Nasal cannula oxygen Head exam: PRESENT: normocephalic Eye exam: PRESENT: EOMI Mouth exam: PRESENT: moist, neck supple Neck exam: ABSENT: JVD Respiratory exam: PRESENT: clear to auscultation byron - Anteriorly bilateral, posteriorly some crepitations were noted Cardiovascular exam: PRESENT: RRR. ABSENT: gallop GI/Abdominal exam: PRESENT: soft. ABSENT: distended, tenderness Extremities exam: ABSENT: pedal edema Neurological exam: PRESENT: alert, awake Skin exam: PRESENT: dry, warm. ABSENT: cyanosis Results Laboratory Results: 11/21/16 03:35 11/21/16 03:35 11/21/16 11/21/16 03:35 03:35 WBC 9.5 RBC 3.72 Hgb 10.9 L Hct 33.2 L MCV 89 MCH 29.4 MCHC 32.9 RDW 15.1 H Plt Count 98 L Sodium 142.7 Potassium 4.4 Chloride 116 H Carbon Dioxide 20 L Anion Gap 7 BUN 19 Creatinine 1.42 H Est GFR ( Amer) 42 L Est GFR (Non-Af Amer) 35 L Glucose 94 Calcium 8.7 11/19/16 11/19/16 07:56 07:56 Creatine Kinase 26 L CK-MB (CK-2) 0.27 Troponin I 0.013 Impressions: Chest X-Ray 11/20/16 00:00 IMPRESSION: In the appropriate clinical settings, the above findings are consistent with multi lobar pneumonia. Assessment & Plan - Diagnosis (1) Hypotension Qualifiers: Hypotension type: hypotension due to drug Qualified Code(s): I95.2 - Hypotension due to drugs Is this a current diagnosis for this admission?: Yes (2) Fever Qualifiers: Fever type: unspecified Qualified Code(s): R50.9 - Fever, unspecified Is this a current diagnosis for this admission?: Yes (3) Ureteral calculus Is this a current diagnosis for this admission?: Yes (4) Hypothyroidism Qualifiers: Hypothyroidism type: unspecified Qualified Code(s): E03.9 - Hypothyroidism, unspecified Is this a current diagnosis for this admission?: Yes (5) Hiatal hernia Is this a current diagnosis for this admission?: Yes (6) Tricuspid regurgitation Qualifiers: Cardiac valve disease etiology: etiology unspecified Qualified Code( s): I07.1 - Rheumatic tricuspid insufficiency Is this a current diagnosis for this admission?: Yes (7) Hypertension Qualifiers: Hypertension type: essential hypertension Qualified Code(s): I10 - Essential (primary) hypertension Is this a current diagnosis for this admission?: Yes (8) Congestive heart failure (CHF) Qualifiers: Congestive heart failure type: unspecified congestive heart failure type Congestive heart failure chronicity: chronic Qualified Code(s): I50.9 - Heart failure, unspecified Is this a current diagnosis for this admission?: Yes - Time Time Spent with patient: 25-34 minutes - Plan Summary Plan Summary: Infiltrate on x-ray may be asymmetric edema from multiple fluid boluses given during hypotensive state. We are going to discontinue Main IV fluids. We will give 1 dose of Lasix. I will discontinue intravenous that antibiotic and switched to oral. We will cover for possible aspiration as well. Patient's improving slowly, continue supportive care. Possibly can be discharged on the morning if blood pressure remains stable and respiratory discomfort resolved.
[2016-11-21] MEDS ORDERED: CLINDAMYCIN HCL 150 MG CAPSULE PO SCH (12:00)
[2016-11-21] MEDS ORDERED: FUROSEMIDE INJ/PF 40 MG/4 ML SDV IV ONE (12:30)
[2016-11-21] MEDS ORDERED: LEVOFLOXACIN 750 MG TABLET PO SCH (13:00)
--- NOTE | 2016-11-21 13:51 | Progress Note ---
Provider Note Provider Note: Addendum to diagnosis: Abnormal chest x-ray probably aspiration pneumonia.
[2016-11-21] MEDS ORDERED: RINGERS SOLUTION,LACTATED 1,000 ML IV PRN (17:37)
[2016-11-21] MEDS ORDERED: LIDOCAINE 0.5% INJ-PF (5 MG/ML) 50 ML SDV SUBCUT PRN (17:37)
[2016-11-21] MEDS ORDERED: TRAMADOL HCL 50 MG TABLET PO PRN (17:39)
[2016-11-21] MEDS ORDERED: ACETAMINOPHEN 325 MG TABLET PO PRN (17:39)
[2016-11-21] MEDS ORDERED: LACTULOSE SYRUP 20 GM/30 ML UDCUP PO PRN (17:40)
[2016-11-21] MEDS: CLINDAMYCIN HCL 150 MG CAPSULE PO SCH (17:59)
[2016-11-21] MEDS ORDERED: EZETIMIBE 10 MG TABLET PO SCH (22:00)
[2016-11-21] MEDS ORDERED: CLONAZEPAM 1 MG TABLET PO SCH (22:00)
[2016-11-21] MEDS ORDERED: CITALOPRAM HYDROBROMIDE 20 MG TABLET PO SCH (22:00)
[2016-11-22] MEDS: CLINDAMYCIN HCL 150 MG CAPSULE PO SCH ×2 (00:09→05:45)
[2016-11-22] MEDS ORDERED: LEVOTHYROXINE SODIUM 0.05 MG TABLET PO SCH (08:00)
[2016-11-22] MEDS ORDERED: PARICALCITOL 1 MCG CAPSULE PO SCH (08:00)
[2016-11-22] MEDS ORDERED: LANSOPRAZOLE 30 MG TAB.RAP.DR PO SCH (08:00)
[2016-11-22] MEDS: LACTOBACILLUS ACIDOPHILUS 250 MG TAB PO SCH ×2 (09:07→17:10)
[2016-11-22] MEDS: OXYBUTYNIN CHLORIDE 5 MG TABLET PO SCH (09:08)
[2016-11-22] MEDS ORDERED: ASPIRIN 81 MG TABLET, CHEWABLE PO SCH (10:00)
[2016-11-22] MEDS ORDERED: DONEPEZIL HCL 5 MG TABLET PO SCH (10:00)
[2016-11-22] MEDS ORDERED: SULFAMETHOXAZOLE/TRIMETHOPRIM 800-160 MG TABLET PO SCH (10:00)
[2016-11-22 12:25] VITALS: BP 124/56
[2016-11-22 12:31] LABS: PATH REVIEW PATHOLOGIST REVIEWED
--- NOTE | 2016-11-22 13:18 | Operative Report ---
Operative Report DATE OF SURGERY: 11/18/16 PREOPERATIVE DIAGNOSIS: L ureteral calculus POSTOPERATIVE DIAGNOSIS: Same OPERATION: L ureteroscopic laser lithotripsy with basket extraction of stone fragments SURGEON: ROSALINDA GALVEZ ANESTHESIA: GA TISSUE REMOVED OR ALTERED: No COMPLICATIONS: None ESTIMATED BLOOD LOSS: None INTRAOPERATIVE FINDINGS: Impacted L distal ureteral calculus PROCEDURE: The patient was brought to the operating room where she was placed in the dorsal lithotomy position on the cystoscopy table following induction of general anesthesia. The skin of the lower abdomen, genitalia, perineum and upper thighs was prepared with Betadine scrub followed by painting with Betadine solution. The area was draped in sterile fashion. A 7 Telugu rigid ureteroscope was advanced per urethra into the bladder and then was advanced into the intramural tunnel of the left ureter over a 0.035 inch guidewire. The stone was encountered, impacted at the ureterovesical hiatus. The guidewire was advanced beyond the stone up the ureter to the left collecting system. The ureteroscope was withdrawn and it was readvanced alongside the guidewire back to the level of the stone. A 365 holmium laser fiber was then used via the working port of the scope to sequentially fragment the stone into basket extractable and/or passable fragments. The laser fiber was removed and a Montes mini basket was then used to extract larger fragments, leaving very small fragments to pass spontaneously. On final passage of the ureteroscope there appeared to be no significant size, retained fragments. There was no evidence of ureteral injury. There was no apparent indication for a stent. The ureteroscope was removed and the bladder was drained with a cystoscope sheath, completing the procedure. The patient was then awakened, extubated and transferred to the recovery room in good condition.
--- NOTE | 2016-11-22 15:37 | PDOC DISCHARGE SUMMARY ---
General - Admit/Disc Date/PCP Admission Date/Primary Care Provider: 11/19/16 10:37 DEANDRE SYKES MD Discharge Date: 11/22/16 - Discharge Diagnosis (1) Hypotension Is this a current diagnosis for this admission?: Yes (2) Fever Is this a current diagnosis for this admission?: Yes (3) Ureteral calculus Is this a current diagnosis for this admission?: Yes (4) Hypothyroidism Is this a current diagnosis for this admission?: Yes (5) Hiatal hernia Is this a current diagnosis for this admission?: Yes (6) Tricuspid regurgitation Is this a current diagnosis for this admission?: Yes (7) Hypertension Is this a current diagnosis for this admission?: Yes (8) Congestive heart failure (CHF) Is this a current diagnosis for this admission?: Yes - Additional Information Resuscitation Status: Full Code Discharge Diet: Cardiac Discharge Activity: Activity As Tolerated, Balance Activity w/Rest Home Medications: Levothyroxine Sodium [Synthroid 0.075 mg Tablet] 50 mcg PO QAM 09/22/11 Paricalcitol [Zemplar 1 Mcg Capsule] 1 mcg PO QAM 09/22/11 Clonazepam [Klonopin 1 mg Tablet] 0.5 mg PO QHS #0 09/15/13 Acetaminophen [Tylenol Extra Strength 500 mg Tablet] 2 tab PO Q8 PRN 06/11/14 Aspirin [Aspirin 81 mg Chewable Tablet] 81 mg PO DAILY 11/04/14 Ezetimibe [Zetia 10 mg Tablet] 10 mg PO QHS 11/04/14 Oxybutynin Chloride [Ditropan Xl] 10 mg PO DAILY 11/04/14 Bethanechol Chloride [Urecholine 10 mg Tablet] 10 mg PO TID 02/23/16 Citalopram Hydrobromide [Celexa 20 mg Tablet] 20 mg PO QHS 02/23/16 Bifidobacterium Infantis [Align 4 mg Capsule] 1 cap PO BID #28 02/28/16 Donepezil HCl [Aricept 5 mg Tablet] 1 tab PO DAILY 11/18/16 Linaclotide [Linzess 145 Mcg Capsule] 1 tab PO DAILY 11/18/16 Pantoprazole Sodium [Protonix] 40 mg PO DAILY 11/20/16 Clindamycin HCl [Cleocin HCl] 300 mg PO QID #40 capsule 11/22/16 Sulfamethoxazole/Trimethoprim [Septra-Ds 800-160 mg Tablet] 1 tab PO Q12 #20 tablet 11/22/16 Additional Information: Hold Lasix and nadolol until reevaluated by primary care physician and instructed to resume. Monitor for diarrhea. History of Present Illness Patient complains of: Hypotension History of Present Illness: DORY HER is a 86 year old female, with ureterolithiasis but no reported stent placement, admitted electively for lithotripsy yesterday and stayed overnight after the procedure, where she received morphine, fentanyl, Diprivan, and Versed. Earlier this morning she reportedly developed hypotension and the hospitalist was called for consultation. Reportedly there is fever. The patient denies any headache or dizziness, but feels generally weak. She denies any diarrhea, dysuria urgency or frequency. No hematuria as well. There is no cough or shortness of breath or chest pain. Patient was given normal saline boluses by the on-call physician, routine laboratory examinations were performed. Hospital Course Hospital Course: The patient was admitted to the medical floor where after lithotripsy the patient developed hypotension and fever. Patient's hypotension probably related to the medications administered during general anesthesia. Fever may all be related to atelectases. However the patient was given intravenous fluids and the patient's blood pressure normalized. Blood culture was obtained and was negative so far. The patient was started on broad-spectrum antibiotic to cover for nosocomial organisms. Urine culture grew Escherichia coli. After fluid boluses for sedation he develop respiratory discomfort and a chest x-ray shows questionable multilobar infiltrates. As the patient's blood pressure normalized, intravenous fluids were discontinued and the patient was given intravenous Lasix and had a good urine output. She was initially placed on High catheter, during the acute hypotensive episode. Shortness of breath significantly improved and was told after the diuretic, family however still concern the possibility of pneumonia or aspiration, therefore the patient was maintained on antibiotics. Dr. Vera was consulted and recommended to remove the High catheter. She was able to void freely. Patient wanting to go back home. Home health for discharge was planned . The rest of the hospital stays unremarkable. Family at bedside and recommended to hold antihypertensive medication and needs to be reevaluated before resumption of the medication. Likewise, antibiotic treatment on an outpatient basis can be given and she is agreeable with the plan. She was eventually discharged home with follow-up with primary care physician and with urology. Physical Exam Vital Signs: Temp Pulse Resp BP Pulse Ox 98.6 F 61 19 124/56 L 96 11/22/16 12:02 11/22/16 14:00 11/22/16 12:02 11/22/16 12:02 11/22/16 12:02 Intake & Output 11/21/16 11/22/16 11/23/16 06:59 06:59 06:59 Intake Total 3119 1912 237 Output Total 950 4125 400 Balance 2169 -0383 -163 Weight 65.4 kg Results Laboratory Results: 11/21/16 03:35 11/21/16 03:35 11/19/16 07:56 WBC 12.9 H RBC 3.61 L Hgb 10.5 L Hct 32.0 L MCV 89 MCH 29.2 MCHC 32.9 RDW 14.7 H Plt Count 106 L 11/19/16 10:46 Catheterized Urine Urine Culture - Final Escherichia Coli 11/19/16 11/19/16 07:56 07:56 Creatine Kinase 26 L CK-MB (CK-2) 0.27 Troponin I 0.013 Impressions: Chest X-Ray 11/20/16 00:00 IMPRESSION: In the appropriate clinical settings, the above findings are consistent with multi lobar pneumonia. Qualifiers PATEINT BEING DISCHARGED WITH ANY OF THE FOLLOWING DIAGNOSIS?: No Plan Discharge Plan: Follow-up with primary care physician in one week. Follow-up with urology, Dr. Vera in 1 week to 2 weeks. Time Spent: Less than 30 Minutes
[2016-11-23] MEDS ORDERED: LEVOFLOXACIN 750 MG TABLET PO SCH (13:00)
== END 2016-11-22 17:20 | disposition home health service (06) | DRG 987 ==
LOC: OROUT 13:51 → 4S 19:30 → UNDOFXSDCACCOM 11-19 09:00 → OROUT 11-19 10:36 → 3N 11-19 10:37 → OROUT 11-21 13:15 → 3N 11-21 13:16 → UNDOADMIN 11-21 13:16
PROVIDERS: ATTEND Urology
PROC: 0TC78ZZ Extirpation of Matter from Left Ureter, Via Natural or Artificial Opening Endoscopic (ICD-10-PCS; principal; 2016-11-18 16:15)
DX: I95.2 Hypotension due to drugs (principal); T50.995A Adverse effect of other drugs, medicaments and biological substances, initial encounter; Y92.530 Ambulatory surgery center as the place of occurrence of the external cause; J69.0 Pneumonitis due to inhalation of food and vomit; N20.1 Calculus of ureter; N20.0 Calculus of kidney; E03.9 Hypothyroidism, unspecified; R63.4 Abnormal weight loss; R50.9 Fever, unspecified; I50.9 Heart failure, unspecified; M81.0 Age-related osteoporosis without current pathological fracture; K44.9 Diaphragmatic hernia without obstruction or gangrene; I07.1 Rheumatic tricuspid insufficiency; I10 Essential (primary) hypertension; I25.10 Atherosclerotic heart disease of native coronary artery without angina pectoris; M19.90 Unspecified osteoarthritis, unspecified site; Z79.82 Long term (current) use of aspirin; Z79.899 Other long term (current) drug therapy; Z90.710 Acquired absence of both cervix and uterus; Z88.8 Allergy status to other drugs, medicaments and biological substances; Z91.011 Allergy to milk products
CPT/HCPCS: 36415; 71010; 80048; 80053; 82550; 82553; 83735; 84132; 84439; 84443; 84484; 85025; 85027; 87040; 87086; 87088; 87186; 910; 93005; 93010; C1769; J0330; J0690; J1100; J1335; J1885; J1940; J2250; J2270; J2405; J2704; J3010; J3475; J3490; J7030; J7040; J7050

== ENCOUNTER → 2016-11-24 | Outpatient (CLI) | payer MEDICARE, OTHER | LOC: OD 15:26 | PROVIDERS: ATTEND Urology | DX: E83.52 Hypercalcemia (principal) | CPT/HCPCS: 36415; 82310; 83970 ==

== ENCOUNTER → 2016-11-26 | Outpatient (CLI) | payer MEDICARE, OTHER ==
[2016-11-26 13:41] LABS: ABSOLUTE EOSINOPHILS # (AUTO) 0.1 10^3/uL (0.0-0.6); ABSOLUTE LYMPHOCYTES (AUTO) 1.8 10^3/uL (0.5-4.7); ABSOLUTE MONOCYTES (AUTO) 0.4 10^3/uL (0.1-1.4); ABSOLUTE NEUT (AUTO) 3.6 10^3/uL (1.7-8.2); BASOPHILS % (AUTO) 0.4 % (0-2); EOSINOPHILS % (AUTO) 1.6 % (0-6); HEMATOCRIT 34.2 % (36.0-47.0); HEMOGLOBIN 11.6 g/dL (12.0-15.5); HGB HCT DIFFERENCE 0.6; LYMPHOCYTES % (AUTO) 29.9 % (13-45); MEAN CORPUSCULAR HEMOGLOBIN 29.6 pg (27.0-33.4); MEAN CORPUSCULAR VOLUME 87 fl (80-97); MONOCYTES % (AUTO) 6.7 % (3-13); RED BLOOD COUNT 3.92 10^6/uL (3.72-5.28); RED CELL DISTRIBUTION WIDTH 14.8 % (11.5-14.0); SEGMENTED NEUTROPHILS % (AUTO) 61.4 % (42-78)
[2016-11-26 13:57] LABS: WHITE BLOOD COUNT 5.9 10^3/uL (4.0-10.5)
[2016-11-26 14:00] LABS: ANION GAP 13 (5-19); BLOOD UREA NITROGEN 9 mg/dL (7-20); CALCIUM 10.1 mg/dL (8.4-10.2); CARBON DIOXIDE 23 mmol/L (22-30); CHLORIDE 108 mmol/L (98-107); GLUCOSE 77 mg/dL (75-110); SODIUM 143.6 mmol/L (137-145)
[2016-11-26 14:02] LABS: CREATININE RESULT 1.32 mg/dL (0.52-1.25)
== END ==
LOC: OD 12:47
PROVIDERS: ATTEND Family Medicine
DX: R07.1 Chest pain on breathing (principal); J15.9 Unspecified bacterial pneumonia; N18.4 Chronic kidney disease, stage 4 (severe)
CPT/HCPCS: 36415; 80048; 85025; 85379

== ENCOUNTER → 2016-11-29 | Outpatient (CLI) | payer MEDICARE, OTHER | LOC: OD 15:00 | PROVIDERS: ATTEND Family Medicine | DX: R07.1 Chest pain on breathing (principal) | CPT/HCPCS: 71020 ==

== ENCOUNTER → 2016-12-17 | Outpatient (CLI) | payer MEDICARE, OTHER ==
[2016-12-17 16:47] LABS: ANION GAP 15 (5-19); BLOOD UREA NITROGEN 19 mg/dL (7-20); CALCIUM 10.2 mg/dL (8.4-10.2); CARBON DIOXIDE 23 mmol/L (22-30); CHLORIDE 102 mmol/L (98-107); CREATININE RESULT 1.11 mg/dL (0.52-1.25); GLUCOSE 107 mg/dL (75-110); POTASSIUM 4.6 mmol/L (3.6-5.0); SODIUM 139.9 mmol/L (137-145)
== END ==
LOC: OD 14:37
PROVIDERS: ATTEND Internal Medicine Nephrology
DX: N18.3 Chronic kidney disease, stage 3 (moderate) (principal)
CPT/HCPCS: 36415; 80048

== ENCOUNTER → 2017-02-10 | Outpatient (CLI) | payer MEDICARE, OTHER ==
[2017-02-10 14:15] LABS: ALANINE AMINOTRANSFERASE 41 U/L (9-52); ALKALINE PHOSPHATASE 91 U/L (38-126); ANION GAP 10 (5-19); ASPARTATE AMINO TRANSFERASE 39 U/L (14-36); BILIRUBIN,DIRECT 0.3 mg/dL (0.0-0.4); BILIRUBIN,TOTAL 0.9 mg/dL (0.2-1.3); BLOOD UREA NITROGEN 17 mg/dL (7-20); CARBON DIOXIDE 30 mmol/L (22-30); CHLORIDE 101 mmol/L (98-107); CREATININE RESULT 1.27 mg/dL (0.52-1.25); GLUCOSE 93 mg/dL (75-110); POTASSIUM 4.4 mmol/L (3.6-5.0); SODIUM 140.8 mmol/L (137-145); TOTAL PROTEIN 7.1 g/dL (6.3-8.2)
[2017-02-10 14:18] LABS: ABSOLUTE EOSINOPHILS # (AUTO) 0.1 10^3/uL (0.0-0.6); ABSOLUTE LYMPHOCYTES (AUTO) 1.6 10^3/uL (0.5-4.7); ABSOLUTE MONOCYTES (AUTO) 0.4 10^3/uL (0.1-1.4); ABSOLUTE NEUT (AUTO) 3.4 10^3/uL (1.7-8.2); BASOPHILS % (AUTO) 0.4 % (0-2); EOSINOPHILS % (AUTO) 1.4 % (0-6); HEMATOCRIT 40.4 % (36.0-47.0); HEMOGLOBIN 13.2 g/dL (12.0-15.5); HGB HCT DIFFERENCE -0.8; LYMPHOCYTES % (AUTO) 28.7 % (13-45); MEAN CORPUSCULAR HEMOGLOBIN 29.6 pg (27.0-33.4); MEAN CORPUSCULAR HGB CONC 32.7 g/dL (32.0-36.0); MEAN CORPUSCULAR VOLUME 90 fl (80-97); MONOCYTES % (AUTO) 7.2 % (3-13); RED BLOOD COUNT 4.47 10^6/uL (3.72-5.28); SEGMENTED NEUTROPHILS % (AUTO) 62.3 % (42-78); WHITE BLOOD COUNT 5.4 10^3/uL (4.0-10.5)
[2017-02-10 14:31] LABS: FREE T3 2.92 pg/mL (2.77-5.27)
[2017-02-10 14:44] LABS: THYROID STIMULATING HORMONE 0.43 uIU/mL (0.47-4.68)
== END ==
LOC: OD 12:19
PROVIDERS: ATTEND Family Medicine
DX: Z79.899 Other long term (current) drug therapy (principal); E03.9 Hypothyroidism, unspecified; R73.9 Hyperglycemia, unspecified
CPT/HCPCS: 36415; 80048; 80076; 83036; 84439; 84443; 84481; 85025

== ENCOUNTER → 2017-02-14 | Outpatient (CLI) | payer MEDICARE, OTHER ==
--- NOTE | 2017-02-14 17:42 | RADIOLOGY REPORT (SQ) ---
EXAM DESCRIPTION: ANKLE RIGHT COMPLETE COMPLETED DATE/TIME: 02/14/2017 4:53 pm REASON FOR STUDY: UNSPECIFIED INJURY OF RIGHT ANKLE, INITIAL ENCOUNTER S99.911A UNSPECIFIED INJURY OF RIGHT ANKLE, INITIAL ENCOUNTE COMPARISON: None. NUMBER OF VIEWS: Three views. TECHNIQUE: AP, lateral, and oblique radiographic images acquired of the right ankle. LIMITATIONS: None. FINDINGS: MINERALIZATION: Normal. BONES: No acute fracture or dislocation. No worrisome bone lesions. JOINTS: No effusions. SOFT TISSUES: Vascular calcifications are present anterior to the tibia. OTHER: No other significant finding. IMPRESSION: NEGATIVE STUDY OF THE RIGHT ANKLE. NO RADIOGRAPHIC EVIDENCE OF ACUTE INJURY. TECHNICAL DOCUMENTATION: JOB ID: [id number] [employer]- All Rights Reserved
--- NOTE | 2017-02-14 18:29 | RADIOLOGY REPORT (SQ) ---
EXAM DESCRIPTION: TIBIA FIBULA RIGHT COMPLETED DATE/TIME: 02/14/2017 4:53 pm REASON FOR STUDY: UNSPECIFIED INJURY OF RIGHT ANKLE, INITIAL ENCOUNTER S99.911A UNSPECIFIED INJURY OF RIGHT ANKLE, INITIAL ENCOUNTE COMPARISON: None. NUMBER OF VIEWS: Two views. TECHNIQUE: Two radiographic images acquired of the right tibia and fibula to include the knee and an kle in at least one projection. LIMITATIONS: None. FINDINGS: MINERALIZATION: Normal. BONES: No acute fracture or dislocation. No worrisome bone lesions. SOFT TISSUES: No obvious swelling or foreign body. OTHER: No other significant finding. IMPRESSION: NEGATIVE STUDY OF THE RIGHT TIBIA AND FIBULA. NO RADIOGRAPHIC EVIDENCE OF ACUTE INJURY. TECHNICAL DOCUMENTATION: JOB ID: [id number] [employer]- All Rights Reserved
== END ==
LOC: OD 16:31
PROVIDERS: ATTEND Family Medicine
DX: S99.911A Unspecified injury of right ankle, initial encounter (principal); X58.XXXA Exposure to other specified factors, initial encounter

== ENCOUNTER → 2017-03-15 | Outpatient (CLI) | payer MEDICARE, OTHER ==
[2017-03-15 13:41] LABS: HEMATOCRIT 39.7 % (36.0-47.0); HEMOGLOBIN 12.9 g/dL (12.0-15.5); MEAN CORPUSCULAR HEMOGLOBIN 29.8 pg (27.0-33.4); MEAN CORPUSCULAR HGB CONC 32.6 g/dL (32.0-36.0); MEAN CORPUSCULAR VOLUME 91 fl (80-97); RED BLOOD COUNT 4.35 10^6/uL (3.72-5.28); RED CELL DISTRIBUTION WIDTH 13.9 % (11.5-14.0); WHITE BLOOD COUNT 6.8 10^3/uL (4.0-10.5)
[2017-03-15 14:31] LABS: ERYTHROCYTE SEDIMENTATION RATE 29 mm/hr (0-30)
== END ==
LOC: OD 12:08
PROVIDERS: ATTEND Family Medicine
DX: M25.552 Pain in left hip (principal)
CPT/HCPCS: 36415; 85027; 85652; 86140

== ENCOUNTER → 2017-03-21 | Outpatient (CLI) | payer MEDICARE, OTHER ==
--- NOTE | 2017-03-21 17:47 | RADIOLOGY REPORT (SQ) ---
EXAM DESCRIPTION: NM 3 PHASE BONE SCAN COMPLETED DATE/TIME: 03/21/2017 3:41 pm REASON FOR STUDY: PAIN IN LEFT HIP M25.552 PAIN IN LEFT HIP COMPARISON: Plain radiographs 03/15/2017 RADIONUCLIDE AND DOSE: 21.1 millicuries Tc99m HDP The route of agent administration: Intravenous. ADDITIONAL DRUGS AND DOSES: None. TECHNIQUE: Following injection of the radiopharmaceutical, serial blood flow images acquired. Equil ibrium blood pool images then acquired. Routine delayed images at 3 hours acquired of the areas of c linical concern with additional focused images as needed. AREA OF INTEREST: Left hip LIMITATIONS: None. FINDINGS: VASCULAR FLOW IMAGES: No asymmetry or focal areas of hyperemia. BLOOD POOL IMAGES: No asymmetry or focal areas of soft-tissue hyper-perfusion. BONES: Expected photopenia on the left from hip replacement. No increased activity. KIDNEYS: Symmetric excretion without obstruction. OTHER: No other significant finding. IMPRESSION: Photopenia from left hip replacement. No increased activity. COMMENT: PQRS 3570F: Current bone scan is compared with any available plain radiographs, prior bone scans, and CT/MRI. TECHNICAL DOCUMENTATION: JOB ID: [id number] [employer]- All Rights Reserved
== END ==
LOC: RAD 10:19
PROVIDERS: ATTEND Family Medicine
DX: M25.552 Pain in left hip (principal)
CPT/HCPCS: 78315; A9561; Q9969

== ENCOUNTER 2017-03-25 10:10 | Emergency (ER) | payer MEDICARE, OTHER ==
--- NOTE | 2017-03-25 10:57 | RADIOLOGY REPORT (SQ) ---
EXAM DESCRIPTION: HAND LEFT 3 VIEWS COMPLETED DATE/TIME: 03/25/2017 10:47 am REASON FOR STUDY: injury COMPARISON: None. EXAM PARAMETERS: NUMBER OF VIEWS: Three views. TECHNIQUE: AP, lateral and oblique radiographic images acquired of the left hand. LIMITATIONS: None. FINDINGS: MINERALIZATION: Osteopenia. BONES: There is a comminuted nondisplaced fracture involving the proximal aspect of 5th middle phalan x. JOINTS: No effusions. SOFT TISSUES: No soft tissue swelling. No foreign body. OTHER: No other significant finding. IMPRESSION: Fracture of the 5th middle phalanx. TECHNICAL DOCUMENTATION: JOB ID: [id number] [employer]- All Rights Reserved
--- NOTE | 2017-03-25 11:03 | ER Document Report ---
HPI - HPI Patient complains to provider of: crushed left hand in van sliding door Onset: Just prior to arrival Onset/Duration: Sudden Quality of pain: Achy, Throbbing Pain Level: 5 Context: 86 yo right handed female crushed left hand in sliding van door this am trying to get to the dentist. Tetanus not current. Associated Symptoms: None Exacerbated by: Movement Relieved by: Denies - ROS ROS below otherwise negative: Yes Systems Reviewed and Negative: Yes All other systems reviewed and negative - REPRODUCTIVE Reproductive: DENIES: : - DERM Skin Color: Normal Past Medical History - General Information source: Patient - Social History Smoking Status: Never Smoker Frequency of alcohol use: None Drug Abuse: None Lives with: Family - daughter and great grandson Family History: Hypertension - Past Medical History Cardiac Medical History: Reports: Hx Congestive Heart Failure, Hx Coronary Artery Disease, Hx Hypercholesterolemia, Hx Hypertension, Hx Heart Murmur - Tricuspid regurgitation Pulmonary Medical History: Reports: Hx Bronchitis - 2011 Endocrine Medical History: Reports: Hx Hypothyroidism Renal/ Medical History: Reports: Hx Kidney Stones, Hx Renal Insufficiency GI Medical History: Reports: Hx Gastroesophageal Reflux Disease, Hx Hiatal Hernia, Hx Irritable Bowel, Hx Liver Failure - r/t meds, "poor" liver function, Hx Ulcer - Hx peptic ulcer 1969' Musculoskeltal Medical History: Reports Hx Arthritis Psychiatric Medical History: Reports: Hx Dementia - Dx'ed 6 years ago, "mini bleeds", Hx Depression Past Surgical History: Reports: Hx Appendectomy, Hx Hysterectomy, Hx Orthopedic Surgery - left hip replacement, Hx Tonsillectomy - Immunizations Immunizations up to date: No Hx Diphtheria, Pertussis, Tetanus Vaccination: Yes Hx Pneumococcal Vaccination: 08/29/12 Vertical Provider Document - CONSTITUTIONAL Agree With Documented VS: Yes Exam Limitations: No Limitations - INFECTION CONTROL TRAVEL OUTSIDE OF THE [place] IN LAST 30 DAYS: No - HEENT HEENT: Normocephalic - NECK Neck: Supple - RESPIRATORY O2 Sat by Pulse Oximetry: 99 - MUSCULOSKELETAL/EXTREMETIES Musculoskeletal/Extremeties: MAEW, FROM, Tender - 5th left pnkiy middle phalanx cut, FROM, extensor and flexor tendons intact. web space between index and thumb tender cut and skin flap, FROM. N/V inctact distal to the cuts. - NEURO Level of Consciousness: Awake, Alert, Appropriate Course - Re-evaluation Re-evalutation: 03/25/17 11:20 Daughter states that she has a long history of Clostridium difficile and since we need to treat her with an antibiotic she needs to be started on Flagyl 250mg 3 times a day per dr haas. She has seen dr. wheatley for hip replacement in past. 03/25/17 11:48 no Tt or Td in the building, the only tetanus [id number] is tdap.pt had pertussis vaccine between 5-10 years ago. - Vital Signs Vital signs: Temp Pulse Resp BP Pulse Ox 98.0 F 52 L 16 132/86 H 99 03/25/17 10:15 03/25/17 10:15 03/25/17 10:15 03/25/17 10:15 03/25/17 10:15 Procedures - Immobilization Left Wrist Time completed: 14:33 Pre-Proc Neuro Vasc Exam: Normal Immobilizer type: Ulnar Performed by: PCT Post-Proc Neuro Vasc Exam: Normal Alignment checked and good: Yes - Laceration/Wound Repair Left Hand Time completed: 14:05 Wound length (cm): 6 - left web space between index and thumb Left. #2 laceration is ulnar side of left pinky finger over the middle phalanx, 2 cm Wound's Depth, Shape: Linear - pinky finger, Irregular - web space Laceration pre-procedure: Sterile drapes applied, Other - surgiscrub Anesthetic type: 1% Lidocaine Volume Anesthetic (mLs): 8 - both wounds Wound explored: Clean Irrigated w/ Saline (mLs): 100 - both wounds Suture Size/Type: 3:0, Nylon Number of Sutures: 9 - pinky 3, hand 6 Layer Closure?: No Post-procedure wound care: Sterile dressing applied - bacitrainc, Splint applied - ulnar gutter Post-procedure NV exam normal: Yes Complications: No Discharge - Discharge Clinical Impression: open comminuted fx left 5th finger, left hand laceration repair, left pinky finger laceration repair, Hx of Clostridium difficile infection, fx proximal phalanx left ring finger Condition: Good Disposition: HOME, SELF-CARE Instructions: Cephalexin ([facility]), Fractured Finger ([facility]), Metronidazole ([facility]), Oral Narcotic Medication ([facility]), Sling to be Used ([facility]), Splint Precautions ([facility]) , Temporary Splint ([facility]), Tetanus Immunization Given ([facility]) Additional Instructions: call for orthopedic appointment for next week to follow the pinky finger, and 4th finger fractures elevate arm in sling during the day take the antibiotic wound check in 48 hours, sooner if worse to er any concerns sutures out in 10 days Please complete the patient satisfaction survey if you get one, and return it.. If you do not receive a survey, then you can go to the [facility] website, [email or web address] and place your comments about your very good care. Thank you very much. It was a pleasure being your medical provider today. Prescriptions: Cephalexin Monohydrate [Keflex 500 mg Capsule] 500 mg PO TID #21 capsule Metronidazole 250 mg PO TID #21 tablet Referrals: DEANDRE HAAS MD [Primary Care Provider] - Follow up as needed KAYLAN WILSON DO [ACTIVE STAFF] - Follow up in 3-5 days
[2017-03-25] MEDS ORDERED: LIDOCAINE 1% INJ-PF (10 MG/ML) 30 ML SDV INJ ONE (11:11)
[2017-03-25] MEDS ORDERED: TETANUS/DIPHTHERIA TOX-ADULT 0.5 ML SYR (>=7YO) IM ONE (11:11)
[2017-03-25] MEDS ORDERED: METRONIDAZOLE 250 MG TABLET PO ONE (11:22)
[2017-03-25] MEDS ORDERED: ONDANSETRON 4 MG TAB.RAPDIS PO ONE (11:22)
[2017-03-25] MEDS ORDERED: CEPHALEXIN 500 MG CAPSULE PO ONE (11:22)
[2017-03-25] MEDS ORDERED: ACETAMINOPHEN 325 MG TABLET PO ONE (11:49)
[2017-03-25] MEDS ORDERED: DIPH/PERTUSS(ACELL)/TETANUS VAC/PF 0.5 ML SYR (>=10YO) IM ONE (14:21)
[2017-03-25 19:08] VITALS: BP 130/76
== END 2017-03-25 14:45 | disposition home or self-care (01) ==
LOC: ER 10:10
PROC: 0HQGXZZ Repair Left Hand Skin, External Approach (ICD-10-PCS; principal; 2017-03-25)
DX: S62.651B Nondisplaced fracture of middle phalanx of left index finger, initial encounter for open fracture (principal); S61.412A Laceration without foreign body of left hand, initial encounter; W23.0XXA Caught, crushed, jammed, or pinched between moving objects, initial encounter; Y92.481 Parking lot as the place of occurrence of the external cause; I25.10 Atherosclerotic heart disease of native coronary artery without angina pectoris; I10 Essential (primary) hypertension; Z23 Encounter for immunization
CPT/HCPCS: 99283; 90471; 73130; 90715; 12004; A9270 ×3; J3490; S0119

== ENCOUNTER 2017-05-11 16:18 | Emergency (ER) | payer MEDICARE, OTHER ==
--- NOTE | 2017-05-11 17:30 | ER Document Report ---
ED Medical Screen (RME) - General Chief Complaint: Fall Stated Complaint: FALL/SHOLDER PAIN Time Seen by Provider: 05/11/17 17:21 Mode of Arrival: Wheelchair Information source: Patient TRAVEL OUTSIDE OF THE [place] IN LAST 30 DAYS: No - HPI Patient complains to provider of: fall Onset: This afternoon - pt fell backwards while trying to get into her wheelchair ealrier today -- no LOC but c/o pain in both shoulders - Related Data Allergies/Adverse Reactions: pregabalin [From Lyrica] Adverse Reaction (Intermediate, Verified 05/11/17 16:31 ) jerking LACTOSE INTOLERANT Allergy (Uncoded 05/11/17 16:31) NARCOTICS Allergy (Uncoded 05/11/17 16:31) PSYCHOLOGICAL EFFECTS, GETS VERY ANGRY Past Medical History - Social History Frequency of alcohol use: None Drug Abuse: None - Past Medical History Cardiac Medical History: Reports: Hx Congestive Heart Failure, Hx Coronary Artery Disease, Hx Hypercholesterolemia, Hx Hypertension, Hx Heart Murmur - Tricuspid regurgitation Denies: Hx Atrial Fibrillation, Hx Heart Attack, Hx Peripheral Vascular Disease, Hx Pulmonary Embolism Pulmonary Medical History: Reports: Hx Bronchitis - 2011 Denies: Hx Asthma, Hx COPD, Hx Pneumonia, Hx Respiratory Failure, Hx Sleep Apnea, Hx Tuberculosis Neurological Medical History: Denies: Hx Cerebrovascular Accident, Hx Seizures Endocrine Medical History: Reports: Hx Hypothyroidism. Denies: Hx Graves' Disease, Hx Hyperthyroidism Renal/ Medical History: Reports: Hx Kidney Stones, Hx Renal Insufficiency. Denies: Hx End Stage Renal Disease, Hx Ovarian Cysts, Hx Peritoneal Dialysis, Hx Pelvic Inflammatory Disease Malignancy Medical History: Denies: Hx Breast Cancer, Hx Cervical Cancer, Hx Leukemia, Hx Lung Cancer, Hx Ovarian Cancer GI Medical History: Reports: Hx Gastroesophageal Reflux Disease, Hx Hiatal Hernia, Hx Irritable Bowel, Hx Liver Failure - r/t meds, "poor" liver function, Hx Ulcer - Hx peptic ulcer . Denies: Hx Crohn's Disease Musculoskeltal Medical History: Reports Hx Arthritis, Denies Hx Fibromyalgia, Denies Hx Multiple Sclerosis, Denies Hx Muscular Dystrophy Psychiatric Medical History: Reports: Hx Dementia - Dx'ed 6 years ago, "mini bleeds", Hx Depression Denies: Hx Bipolar Disorder, Hx Post Traumatic Stress Disorder, Hx Schizophrenia Traumatic Medical History: Denies: Hx Fractures Infectious Medical History: Denies: Hx HIV Past Surgical History: Reports: Hx Appendectomy, Hx Hysterectomy, Hx Orthopedic Surgery - left hip replacement, Hx Tonsillectomy. Denies: Hx Bowel Surgery, Hx Section, Hx Cholecystectomy, Hx Colostomy, Hx Coronary Artery Bypass Graft, Hx Gastric Bypass Surgery, Hx Herniorrhaphy, Hx Mastectomy, Hx Pacemaker , Hx Tubal Ligation - Immunizations Immunizations up to date: No Hx Diphtheria, Pertussis, Tetanus Vaccination: Yes Physical Exam - Vital signs Vitals: Temp Pulse Resp BP Pulse Ox 97.9 F 65 20 121/52 L 95 05/11/17 16:32 05/11/17 16:32 05/11/17 16:32 05/11/17 16:32 05/11/17 16:32 Course - Vital Signs Vital signs: Temp Pulse Resp BP Pulse Ox 97.9 F 65 20 121/52 L 95 05/11/17 16:32 05/11/17 16:32 05/11/17 16:32 05/11/17 16:32 05/11/17 16:32
--- NOTE | 2017-05-11 18:08 | RADIOLOGY REPORT (SQ) ---
EXAM DESCRIPTION: SHOULDER BILAT 2 OR MORE VIEWS COMPLETED DATE/TIME: 05/11/2017 5:58 pm REASON FOR STUDY: fall COMPARISON: None. NUMBER OF VIEWS: Three views. TECHNIQUE: Internal rotation, external rotation, and Y view images acquired of the right and left sh oulder. LIMITATIONS: None. FINDINGS: MINERALIZATION: Normal. BONES: There is an old fracture of the left humeral neck. No acute osseous or joint abnormality is s een. JOINTS: No dislocation. VISUALIZED LUNGS AND RIBS: No pneumothorax. No rib fracture. SOFT TISSUES: No radiopaque foreign body. OTHER: No other significant finding. IMPRESSION: Old left humeral neck fracture with no acute abnormality in either shoulder. TECHNICAL DOCUMENTATION: JOB ID: [id number] [employer]- All Rights Reserved
--- NOTE | 2017-05-11 18:08 | RADIOLOGY REPORT (SQ) ---
EXAM DESCRIPTION: CHEST PA/LAT COMPLETED DATE/TIME: 05/11/2017 5:58 pm REASON FOR STUDY: fall COMPARISON: 11/20/2016 EXAM PARAMETERS: NUMBER OF VIEWS: two views TECHNIQUE: Digital Frontal and Lateral radiographic views of the chest acquired. RADIATION DOSE: NA LIMITATIONS: none FINDINGS: LUNGS AND PLEURA: No opacities, masses or pneumothorax. No pleural effusion. MEDIASTINUM AND HILAR STRUCTURES: No masses or contour abnormalities. HEART AND VASCULAR STRUCTURES: Heart normal size. No evidence for failure. BONES: There are mild wedge deformities in the dorsal spine. Age of these are indeterminate but were present on prior chest x-ray done in November. HARDWARE: None in the chest. OTHER: Retrocardiac density is most consistent with hiatal hernia. IMPRESSION: No acute findings in the chest. TECHNICAL DOCUMENTATION: JOB ID: [id number] [employer]- All Rights Reserved
[2017-05-11 18:30] VITALS: BP 120/64
== END 2017-05-11 18:30 | disposition home or self-care (01) ==
LOC: ER 16:18
DX: M25.511 Pain in right shoulder (principal); M25.512 Pain in left shoulder; W19.XXXA Unspecified fall, initial encounter
CPT/HCPCS: 71020; 99283

== ENCOUNTER → 2017-06-27 | Outpatient (CLI) | payer MEDICARE, OTHER ==
--- NOTE | 2017-06-27 14:53 | RADIOLOGY REPORT (SQ) ---
EXAM DESCRIPTION: KUB COMPLETED DATE/TIME: 06/27/2017 10:15 am REASON FOR STUDY: CALCULUS OF KIDNEY COMPARISON: None. NUMBER OF VIEWS: One view. TECHNIQUE: Supine radiographic image of the abdomen acquired. LIMITATIONS: None. FINDINGS: BOWEL GAS PATTERN: Normal bowel gas pattern. No dilated loops. CALCIFICATIONS: 2 mm calcified density overlying right renal fossa. Calcifications in the pelvis mos t consistent with phleboliths. SOFT TISSUES: No gross mass or suggestion of organomegaly. HARDWARE: None. BONES: Left hip arthroplasty. OTHER: No other significant finding. IMPRESSION: 2 mm stone right kidney.
== END ==
LOC: OD 09:45
PROVIDERS: ATTEND Urology
DX: N20.0 Calculus of kidney (principal)
CPT/HCPCS: 74000

== ENCOUNTER 2017-09-05 10:41 | Emergency (ER) | payer MEDICARE, OTHER ==
[2017-09-05] MEDS ORDERED: TRAMADOL HCL 50 MG TABLET PO ONE (11:29)
--- NOTE | 2017-09-05 11:30 | ER Document Report ---
ED Medical Screen (RME) - General Chief Complaint: Buttock Injury Stated Complaint: FALL/TAILBONE PAIN Time Seen by Provider: 09/05/17 11:26 Notes: Patient fell at home 3 days ago. She had the back of her head on a dresser. She has had no significant change of mental status no vomiting. Patient does complain of severe coccyx pain. She is also been very weak per family member. Family member states normally she can ambulate and maneuver about the house on her own in the last several days she cannot do this. She is currently under home health care for a recent urinary tract infection. Family member states the patient does not do well with narcotic medication but has done well with Ultram in the past. TRAVEL OUTSIDE OF THE [place] IN LAST 30 DAYS: No - Related Data Allergies/Adverse Reactions: pregabalin [From Lyrica] Adverse Reaction (Intermediate, Verified 09/05/17 10:45 ) jerking LACTOSE INTOLERANT Allergy (Uncoded 05/11/17 16:31) NARCOTICS Allergy (Uncoded 05/11/17 16:31) PSYCHOLOGICAL EFFECTS, GETS VERY ANGRY Past Medical History - Social History Chew tobacco use (# tins/day): No Frequency of alcohol use: None Drug Abuse: None - Past Medical History Cardiac Medical History: Reports: Hx Congestive Heart Failure, Hx Coronary Artery Disease, Hx Hypercholesterolemia, Hx Hypertension, Hx Heart Murmur - Tricuspid regurgitation Denies: Hx Atrial Fibrillation, Hx Heart Attack, Hx Peripheral Vascular Disease, Hx Pulmonary Embolism Pulmonary Medical History: Reports: Hx Bronchitis - 2011 Denies: Hx Asthma, Hx COPD, Hx Pneumonia, Hx Respiratory Failure, Hx Sleep Apnea, Hx Tuberculosis Neurological Medical History: Denies: Hx Cerebrovascular Accident, Hx Seizures Endocrine Medical History: Reports: Hx Hypothyroidism. Denies: Hx Graves' Disease, Hx Hyperthyroidism Renal/ Medical History: Reports: Hx Kidney Stones, Hx Renal Insufficiency. Denies: Hx End Stage Renal Disease, Hx Ovarian Cysts, Hx Peritoneal Dialysis, Hx Pelvic Inflammatory Disease Malignancy Medical History: Denies: Hx Breast Cancer, Hx Cervical Cancer, Hx Leukemia, Hx Lung Cancer, Hx Ovarian Cancer GI Medical History: Reports: Hx Gastroesophageal Reflux Disease, Hx Hiatal Hernia, Hx Irritable Bowel, Hx Liver Failure - r/t meds, "poor" liver function, Hx Ulcer - Hx peptic ulcer . Denies: Hx Crohn's Disease, Hx Pancreatitis Musculoskeltal Medical History: Reports Hx Arthritis, Denies Hx Fibromyalgia, Denies Hx Multiple Sclerosis, Denies Hx Muscular Dystrophy Psychiatric Medical History: Reports: Hx Dementia - Dx'ed 6 years ago, "mini bleeds", Hx Depression Denies: Hx Bipolar Disorder, Hx Post Traumatic Stress Disorder, Hx Schizophrenia Traumatic Medical History: Denies: Hx Fractures Infectious Medical History: Denies: Hx HIV Past Surgical History: Reports: Hx Appendectomy, Hx Hysterectomy, Hx Orthopedic Surgery - left hip replacement, Hx Tonsillectomy. Denies: Hx Bowel Surgery, Hx Section, Hx Cholecystectomy, Hx Colostomy, Hx Coronary Artery Bypass Graft, Hx Gastric Bypass Surgery, Hx Herniorrhaphy, Hx Mastectomy, Hx Pacemaker , Hx Tubal Ligation - Immunizations Immunizations up to date: No Hx Diphtheria, Pertussis, Tetanus Vaccination: Yes Physical Exam - Vital signs Vitals: Temp Pulse Resp BP Pulse Ox 98.1 F 77 20 120/55 L 96 09/05/17 10:48 09/05/17 10:48 09/05/17 10:48 09/05/17 10:48 09/05/17 10:48 Course - Vital Signs Vital signs: Temp Pulse Resp BP Pulse Ox 98.1 F 77 20 120/55 L 96 09/05/17 10:48 09/05/17 10:48 09/05/17 10:48 09/05/17 10:48 09/05/17 10:48
[2017-09-05 12:11] LABS: ABSOLUTE EOSINOPHILS # (AUTO) 0.2 10^3/uL (0.0-0.6); ABSOLUTE LYMPHOCYTES (AUTO) 1.3 10^3/uL (0.5-4.7); ABSOLUTE MONOCYTES (AUTO) 0.6 10^3/uL (0.1-1.4); ABSOLUTE NEUT (AUTO) 7.2 10^3/uL (1.7-8.2); BASOPHILS % (AUTO) 0.2 % (0-2); EOSINOPHILS % (AUTO) 1.9 % (0-6); HEMOGLOBIN 13.4 g/dL (12.0-15.5); LYMPHOCYTES % (AUTO) 14.4 % (13-45); MEAN CORPUSCULAR HEMOGLOBIN 27.6 pg (27.0-33.4); MEAN CORPUSCULAR HGB CONC 32.6 g/dL (32.0-36.0); MEAN CORPUSCULAR VOLUME 85 fl (80-97); MONOCYTES % (AUTO) 6.5 % (3-13); PLATELET COUNT 237 10^3/uL (150-450); RED BLOOD COUNT 4.85 10^6/uL (3.72-5.28); RED CELL DISTRIBUTION WIDTH 14.9 % (11.5-14.0); TOTAL CELLS COUNTED % (AUTO) 100 %; WHITE BLOOD COUNT 9.3 10^3/uL (4.0-10.5)
--- NOTE | 2017-09-05 12:16 | RADIOLOGY REPORT (SQ) ---
EXAM DESCRIPTION: CT HEAD WITHOUT COMPLETED DATE/TIME: 09/05/2017 12:00 pm REASON FOR STUDY: fell/pain COMPARISON: [address] BRAIN EXAMS SINCE 12/17/2009, MOST RECENTLY 02/14/2016 TECHNIQUE: Axial images acquired through the brain without intravenous contrast. Images reviewed wi th bone, brain and subdural windows. Images stored on PACS. All CT scanners at this facility use dose modulation, iterative reconstruction, and/or weight based d osing when appropriate to reduce radiation dose to as low as reasonably achievable (ALARA). [facility]: Dose Right [facility]: CareDose [facility]: Dose Right [facility]: Teradose 4D [facility]: Smart Sqrrl RADIATION DOSE: CT Rad equipment meets quality standard of care and radiation dose reduction techniq ues were employed. CTDIvol: 60.1 mGy. DLP: 1034 mGy-cm.mGy. LIMITATIONS: None. FINDINGS: VENTRICLES: Prominent. CEREBRUM: No masses. No hemorrhage. No midline shift. Areas of low density in the white matter mos t likely due to chronic micro-vascular ischemic change. No evidence for acute infarction. CEREBELLUM: No masses. No hemorrhage. No alteration of density. No evidence for acute infarction. EXTRAAXIAL SPACES: Age-related involutional change. No fluid collections. No masses. ORBITS AND GLOBE: No intra- or extraconal masses. Normal contour of globe without masses. CALVARIUM: No fracture. PARANASAL SINUSES: No fluid or mucosal thickening. SOFT TISSUES: No mass or hematoma. OTHER: No other significant finding. IMPRESSION: CHRONIC CHANGES OF ATROPHY AND MICROVASCULAR ISCHEMIA. NO ACUTE PROCESS. EVIDENCE OF ACUTE STROKE: NO. TECHNICAL DOCUMENTATION: JOB ID: [id number] Quality ID # [id number]: Final reports with documentation of one or more dose reduction techniques (e.g., Au tomated exposure control, adjustment of the mA and/or kV according to patient size, use of iterative reconstruction technique) 2010 [employer]- All Rights Reserved
[2017-09-05 12:32] LABS: ALANINE AMINOTRANSFERASE 51 U/L (9-52); ALKALINE PHOSPHATASE 99 U/L (38-126); ANION GAP 12 (5-19); ASPARTATE AMINO TRANSFERASE 71 U/L (14-36); BILIRUBIN,DIRECT 0.3 mg/dL (0.0-0.4); BILIRUBIN,TOTAL 0.5 mg/dL (0.2-1.3); BLOOD UREA NITROGEN 19 mg/dL (7-20); CALCIUM 10.4 mg/dL (8.4-10.2); CARBON DIOXIDE 28 mmol/L (22-30); CHLORIDE 99 mmol/L (98-107); GLUCOSE 109 mg/dL (75-110); POTASSIUM 4.3 mmol/L (3.6-5.0); SODIUM 138.8 mmol/L (137-145); TOTAL PROTEIN 6.9 g/dL (6.3-8.2)
--- NOTE | 2017-09-05 12:40 | ER Document Report ---
ED General - General Chief Complaint: Buttock Injury Stated Complaint: FALL/TAILBONE PAIN Time Seen by Provider: 09/05/17 11:26 TRAVEL OUTSIDE OF THE [place] IN LAST 30 DAYS: No - HPI Notes: Patient is an 86-year-old female with a history of CKD, CAD, CHF, hypertension, previous "brain bleeds," who presents to the ED with daughter complaining of coccyx pain status post fall 3 days ago. Patient states that she fell on her butt at that time and bumped her head against the dresser afterwards. She denies any loss of consciousness, nausea/vomiting. Daughter states that they noticed a small bump on the head at that time, but patient has otherwise been at her baseline mentally and with her speech. Daughter states that she did recently get treated for a urinary infection and has been weaker since then. Daughter states that she is still eating and drinking without any difficulties, but did have a decreased appetite today. She is still urinating normally and having normal bowel movements otherwise. Patient states that the pain in her buttocks does not radiate and she is still able to ambulate, but not as well as she was because of the pain. They have not noticed any obvious bruising, deformity, or erythema. Pt does have home health PT showing up to help her with her general strength s/p UTI. Denies any headache, fever, neck pain, changes in vision/speech/mentation/hearing, URI, sore throat, chest pain, palpitations, syncope, cough, shortness of breath, wheeze, dyspnea, abdominal pain, nausea/vomiting/diarrhea, urinary retention, dysuria, hematuria, loss of control of bowel or bladder, numbness/tingling, saddle anesthesia, muscle paralysis/weakness, or rash. - Related Data Allergies/Adverse Reactions: pregabalin [From Lyrica] Adverse Reaction (Intermediate, Verified 09/05/17 10:45 ) jerking LACTOSE INTOLERANT Allergy (Uncoded 05/11/17 16:31) NARCOTICS Allergy (Uncoded 05/11/17 16:31) PSYCHOLOGICAL EFFECTS, GETS VERY ANGRY Past Medical History - Social History Smoking Status: Never Smoker Chew tobacco use (# tins/day): No Frequency of alcohol use: None Drug Abuse: None Family History: Hypertension Patient has suicidal ideation: No Patient has homicidal ideation: No - Past Medical History Cardiac Medical History: Reports: Hx Congestive Heart Failure, Hx Coronary Artery Disease, Hx Hypercholesterolemia, Hx Hypertension, Hx Heart Murmur - Tricuspid regurgitation Denies: Hx Atrial Fibrillation, Hx Heart Attack, Hx Peripheral Vascular Disease, Hx Pulmonary Embolism Pulmonary Medical History: Reports: Hx Bronchitis - 2011 Denies: Hx Asthma, Hx COPD, Hx Pneumonia, Hx Respiratory Failure, Hx Sleep Apnea, Hx Tuberculosis Neurological Medical History: Denies: Hx Cerebrovascular Accident, Hx Seizures Endocrine Medical History: Reports: Hx Hypothyroidism. Denies: Hx Graves' Disease, Hx Hyperthyroidism Renal/ Medical History: Reports: Hx Kidney Stones, Hx Renal Insufficiency. Denies: Hx End Stage Renal Disease, Hx Ovarian Cysts, Hx Peritoneal Dialysis, Hx Pelvic Inflammatory Disease Malignancy Medical History: Denies: Hx Breast Cancer, Hx Cervical Cancer, Hx Leukemia, Hx Lung Cancer, Hx Ovarian Cancer GI Medical History: Reports: Hx Gastroesophageal Reflux Disease, Hx Hiatal Hernia, Hx Irritable Bowel, Hx Liver Failure - r/t meds, "poor" liver function, Hx Ulcer - Hx peptic ulcer . Denies: Hx Crohn's Disease, Hx Pancreatitis Musculoskeltal Medical History: Reports Hx Arthritis, Denies Hx Fibromyalgia, Denies Hx Multiple Sclerosis, Denies Hx Muscular Dystrophy Psychiatric Medical History: Reports: Hx Dementia - Dx'ed 6 years ago, "mini bleeds", Hx Depression Denies: Hx Bipolar Disorder, Hx Post Traumatic Stress Disorder, Hx Schizophrenia Traumatic Medical History: Denies: Hx Fractures Infectious Medical History: Denies: Hx HIV Past Surgical History: Reports: Hx Appendectomy, Hx Hysterectomy, Hx Orthopedic Surgery - left hip replacement, Hx Tonsillectomy. Denies: Hx Bowel Surgery, Hx Section, Hx Cholecystectomy, Hx Colostomy, Hx Coronary Artery Bypass Graft, Hx Gastric Bypass Surgery, Hx Herniorrhaphy, Hx Mastectomy, Hx Pacemaker , Hx Tubal Ligation - Immunizations Immunizations up to date: No Hx Diphtheria, Pertussis, Tetanus Vaccination: Yes Hx Pneumococcal Vaccination: 08/29/12 Review of Systems - Review of Systems Notes: REVIEW OF SYSTEMS: CONSTITUTIONAL : Denies fever, chills, or sweats. Denies recent illness. EENT: Denies eye, ear, throat, or mouth pain or symptoms. Denies nasal or sinus congestion or discharge. Denies throat, tongue, or mouth swelling or difficulty swallowing. CARDIOVASCULAR: Denies chest pain. Denies palpitations or racing or irregular heart beat. Denies ankle edema. RESPIRATORY: Denies cough, cold, or chest congestion. Denies shortness of breath, difficulty breathing, or wheezing. GASTROINTESTINAL: Denies abdominal pain or distention. Denies nausea, vomiting , or diarrhea. Denies blood in vomitus, stools, or per rectum. Denies black, tarry stools. Denies constipation. GENITOURINARY: Denies difficulty urinating, painful urination, burning, frequency, blood in urine, or discharge. MUSCULOSKELETAL: see hpi SKIN: Denies rash, lesions or sores. NEUROLOGICAL: Denies confusion or altered mental status. Denies passing out or loss of consciousness. Denies dizziness or lightheadedness. Denies headache. Denies weakness or paralysis or loss of use of either side. Denies problems with gait or speech. Denies sensory loss, numbness, or tingling. Denies seizures. ALL OTHER SYSTEMS REVIEWED AND NEGATIVE. Dictation was performed using [employer] voice recognition software Physical Exam - Vital signs Vitals: Temp Pulse Resp BP Pulse Ox 98.1 F 77 20 120/55 L 96 09/05/17 10:48 09/05/17 10:48 09/05/17 10:48 09/05/17 10:48 09/05/17 10:48 Notes: PHYSICAL EXAMINATION: GENERAL: Well-appearing, well-nourished and in no acute distress. A&Ox4 HEAD: Atraumatic, normocephalic. Non-tender. No kidd sign EYES: Pupils equal round and reactive to light, extraocular movements intact, sclera anicteric, conjunctiva are normal. No raccoon eyes/entrapment ENT: EAC clear b/l. TM's intact b/l without erythema, fluid, or perforation. Nares patent and without discharge. oropharynx clear without exudates. No tonsilar hypertrophy or erythema. Moist mucous membranes. No sinus tenderness. No hemotympanum/CSF discharge. NECK: Normal range of motion, supple without lymphadenopathy. No rigidity. No midline tenderness. Spurling negative. NEXUS negative. Chest: No flail chest. equal rise/fall. Non-tender LUNGS: Breath sounds clear to auscultation bilaterally and equal. No wheezes rales or rhonchi. HEART: Regular rate and rhythm without murmurs, rubs, gallops. ABDOMEN: Soft, nontender, nondistended abdomen. No guarding, no rebound. No masses appreciated. Normal bowel sounds present. No CVA tenderness bilaterally. Musculoskeletal: Ext b/l: FROM to passive/active. Strength 5+/5. No deficits noted. Non tender extremities. N/V intact distal x4. Back: FROM to passive/active. Strength 5+/5. No vertebral point tenderness, stepoffs, or deformities. + tenderness to the coccyx to palp w/o evidence of erythema, ecchymosis, or deformity. Extremities: No cyanosis, clubbing, or edema b/l. Peripheral pulses 2+. Capillary refill less than 2 seconds. NEUROLOGICAL: MMSE intact. Cranial nerves grossly intact. Normal speech. Normal sensory, motor exams. Reflexes 2+ b/l. NURA's negative. Pronator drift negative. PSYCH: Normal mood, normal affect. SKIN: Warm, Dry, normal turgor, no rashes or lesions noted. Course - Re-evaluation Re-evalutation: 09/05/17 13:50 Patient is an afebrile, well-hydrated, 86-year-old female who presents to the ED with a contusion to her coccyx as well as probable continued UTI. Vitals are stable. PE is otherwise unremarkable. See urinalysis results. Urine culture is pending to confirm. X-rays were unremarkable for any acute pathology. CT scan of the head was unremarkable for any acute pathology. CBC, CMP are unchanged from generalized baseline. MMSE intact. No other labs or imaging warranted at this time based on H&P. Low suspicion for any meningitis, fracture, expanding/ruptured AAA, cauda equina syndrome, epidural mass lesion/ abscess, herniated disc causing severe spinal stenosis, or other systemic infection at this time. Patient/daughter are aware that this condition can change from initial presentation and that they need monitor symptoms closely for any acute changes. I will send her home with a prescription for doxycycline as patient just finished Cipro recently and she has CKD. Conservative measures for symptoms otherwise. Recheck with your PCM in 3-5 days. Return to the ED with any worsening/concerning symptoms otherwise as reviewed in discharge. Consider consult with orthopedics. Patient and daughter are in agreement. - Vital Signs Vital signs: Temp Pulse Resp BP Pulse Ox 98.1 F 77 20 120/55 L 96 09/05/17 10:48 09/05/17 10:48 09/05/17 10:48 09/05/17 10:48 09/05/17 10:48 - Laboratory Result Diagrams: 09/05/17 11:50 09/05/17 11:50 Laboratory results interpreted by me: 09/05/17 09/05/17 09/05/17 11:50 11:50 13:09 RDW 14.9 H Creatinine 1.42 H Est GFR ( Amer) 42 L Est GFR (Non-Af Amer) 35 L Calcium 10.4 H AST 71 H Urine Blood SMALL H Urine Nitrite POSITIVE H Discharge - Discharge Clinical Impression: Coccyx contusion Qualifiers: Encounter type: initial encounter Qualified Code(s): S30.0XXA - Contusion of lower back and pelvis, initial encounter UTI (urinary tract infection) Qualifiers: Urinary tract infection type: site unspecified Hematuria presence: without hematuria Qualified Code(s): N39.0 - Urinary tract infection, site not specified Condition: Stable Disposition: HOME, SELF-CARE Instructions: Urinary Tract Infection ([facility]), Coccyx Injury ([facility]), Doxycycline ( [facility]) Additional Instructions: Push fluids (i.e. water, cranberry juice) Proper hygenic technique Keep the skin clean Tylenol/ibuprofen as needed Ice, stretches, rest, tylenol as needed, warm compresses Take medications as directed F/u with your PCM in 3-5 days for a recheck Consider consult with a Urologist/Orthopedics for ongoing/worsening symptoms. Return to the ED with any worsening symptoms and/or development of fever, headache, changes in mentation/speech/vision/behavior, chest pain, palpitations , syncope, shortness of breath, trouble breathing, abdominal pain, n/v/d, blood in stool/urine, loss of control of bowel/bladder, urinary retention, muscle weakness/paralysis, saddle anesthesia, numbness/tingling, or other worsening symptoms that are concerning to you. Prescriptions: Doxycycline Hyclate 100 mg PO BID #14 capsule Referrals: [facility] [Provider Group] - Follow up as needed [facility] [Provider Group] - Follow up as needed
--- NOTE | 2017-09-05 12:41 | RADIOLOGY REPORT (SQ) ---
EXAM DESCRIPTION: L SPINE 2 VIEWS COMPLETED DATE/TIME: 09/05/2017 12:23 pm REASON FOR STUDY: fell/pain COMPARISON: Lumbar spine films 12/05/2011 Abdominal films 06/27/2017 NUMBER OF VIEWS: Two views. TECHNIQUE: AP and lateral radiographic images acquired of the lumbar spine. LIMITATIONS: Suboptimal visualization of L1 due to patient positioning FINDINGS: MINERALIZATION: Osteoporotic SEGMENTATION: Normal. No transitional anatomy. ALIGNMENT: Normal. VERTEBRAE: Compression deformities are present at T10 and T11 at the upper edge of the field of view. No gross lumbar vertebral body compression deformity. Suboptimal visualization of L1 due to patien t positioning DISCS: Diffuse decreased intervertebral disc space height. Anterior osteophytes lower thoracic and u pper lumbar spine. POSTERIOR ELEMENTS: Pedicles and facets are intact. No pars defect or posterior arch defects. HARDWARE: None in the spine. PARASPINAL SOFT TISSUES: Normal. PELVIS: Intact as visualized. No fractures or worrisome bone lesions. SI joints intact. OTHER: No other significant finding. IMPRESSION: Osteoporotic elderly patient. No gross acute displaced fracture. Suboptimal visualizat ion of L1 due to patient positioning TECHNICAL DOCUMENTATION: JOB ID: [id number] [employer]- All Rights Reserved
--- NOTE | 2017-09-05 12:42 | RADIOLOGY REPORT (SQ) ---
EXAM DESCRIPTION: SACRUM AND COCCYX COMPLETED DATE/TIME: 09/05/2017 12:23 pm REASON FOR STUDY: fell/pain COMPARISON: Lumbar spine films same date NUMBER OF VIEWS: Three views. TECHNIQUE: AP, lateral, and tilt views of the sacrum and coccyx. LIMITATIONS: Lateral film slightly rotated FINDINGS: MINERALIZATION: Osteoporotic BONES: No acute fracture or dislocation. No worrisome bone lesions. SOFT TISSUES: No soft tissue swelling. No foreign body. OTHER: Old left hip replacement. Lower lumbar disc space narrowing and multilevel facet arthropathy. IMPRESSION: Osteoporotic. No acute displaced fracture of the sacrum. TECHNICAL DOCUMENTATION: JOB ID: [id number] [employer]- All Rights Reserved
[2017-09-05 13:44] LABS: APPEARANCE,URINE CLEAR; BILIRUBIN,URINE NEGATIVE (NEGATIVE); COLOR,URINE YELLOW; GLUCOSE, URINE NEGATIVE (NEGATIVE); KETONES,URINE NEGATIVE (NEGATIVE); LEUKOCYTE ESTERASE,URINE NEGATIVE (NEGATIVE); NITRITE,URINE POSITIVE (NEGATIVE); PROTEIN,URINE NEGATIVE (NEGATIVE); URINE SPECIFIC GRAVITY 1.008; UROBILINOGEN,URINE NEGATIVE mg/dL (<2.0)
[2017-09-05 15:12] VITALS: BP 121/52
== END 2017-09-05 15:11 | disposition home or self-care (01) ==
LOC: ER 10:41
DX: S30.0XXA Contusion of lower back and pelvis, initial encounter (principal); W19.XXXA Unspecified fall, initial encounter; Y92.009 Unspecified place in unspecified non-institutional (private) residence as the place of occurrence of the external cause; N39.0 Urinary tract infection, site not specified; I12.9 Hypertensive chronic kidney disease with stage 1 through stage 4 chronic kidney disease, or unspecified chronic kidney disease; N18.9 Chronic kidney disease, unspecified; I25.10 Atherosclerotic heart disease of native coronary artery without angina pectoris; R53.1 Weakness; R63.0 Anorexia; Z88.5 Allergy status to narcotic agent
CPT/HCPCS: 99284; 36415; 87086; 85025; 87088; 80053; 81001; 87186; 72220; 72100; 70450; A9270